=== PATIENT | female | born 1930 ===

== ENCOUNTER 2016-10-31 14:18 | Observation (INO) | payer OTHER ==
[2016-10-31] MEDS ORDERED: Sodium Chloride 0.9% 1,000 ML IV STA (15:06)
[2016-10-31 15:36] LABS: BASO % 0.3 % (0.0-2.0); EOS # 1.4 K/uL (0.0-0.7); EOS % 20.5 % (0.0-4.0); HEMATOCRIT 34.1 % (34.0-47.0); LYMPH # 1.6 K/uL (1.0-4.3); LYMPH % 23.9 % (20.0-40.0); MEAN CELL VOLUME 88.2 fl (81.0-99.0); MEAN CORPUSCULAR HEMOGLOBIN 29.1 pg (27.0-31.0); MONO # 0.4 K/uL (0.0-0.8); MONO % 5.4 % (0.0-10.0); NEUT # 3.3 K/uL (1.8-7.0); NEUT % 49.9 % (50.0-75.0); PLATELET COUNT 206 K/uL (130-400); RED CELL DISTRIBUTION WIDTH 14.8 % (11.5-14.5); WHITE BLOOD COUNT 6.7 K/uL (4.8-10.8)
[2016-10-31 15:43] LABS: VENOUS BLOOD GAS PCO2 47 mmHg (40-60); VENOUS BLOOD PH 7.38 (7.32-7.43)
[2016-10-31 15:43] LABS: ALB/GLOB RATIO 1.3 (1.0-2.1); ALKALINE PHOSPHATASE 111 U/L (38-126); ALT/SGPT 22 U/L (9-52); AST/SGOT 26 U/L (14-36); BILIRUBIN,TOTAL 0.6 mg/dl (0.2-1.3); BLOOD UREA NITROGEN 14 mg/dl (7-17); CALCIUM 9.1 mg/dL (8.4-10.2); CARBON DIOXIDE 21 mmol/L (22-30); CHLORIDE 96 mmol/L (98-107); GFR AFRICAN-AMERICAN > 60; GLUCOSE,RANDOM 108 mg/dL (65-105); SODIUM 128 mmol/l (132-148); TOTAL PROTEIN 7.3 G/DL (6.3-8.2)
[2016-10-31 15:44] LABS: POTASSIUM 4.7 MMOL/L (3.6-5.0)
--- NOTE | 2016-10-31 16:18 | CT ---
PROCEDURE: CT scan of the brain dated 10/31/2016 HISTORY: altered mental COMPARISON: Comparison made with CT scan brain 05/19/2015. TECHNIQUE: Axial computed tomography images were obtained through the head/brain without intravenous contrast. Radiation dose: Total exam DLP = 830.64 mGy-cm. This CT exam was performed using one or more of the following dose reduction techniques: Automated exposure control, adjustment of the mA and/or kV according to patient size, and/or use of iterative reconstruction technique. FINDINGS: HEMORRHAGE: No acute parenchymal, subarachnoid or extra-axial hemorrhage. BRAIN: Moderate diffuse/ confluent chronic white matter ischemic changes are seen extending peripherally into the deep and subcortical white matter both cerebral hemispheres. There appears to be some minimal extension of these changes into the white matter tracts of both basal nuclei. There may also be a few tiny more discrete bilateral basal nuclei lacunar type infarcts. Moderate generalized volume loss. Vascular calcifications both carotid siphons. VENTRICLES: No obstructive hydrocephalus. CALVARIUM: There are no acute calvarial fractures. PARANASAL SINUSES: Small focal areas of polypoid like mucosal thickening and a mucous retention cyst formation inferior margins both maxillary antra. The pacs MASTOID AIR CELLS: Unremarkable as visualized. No inflammatory changes. OTHER FINDINGS: Changes of bilateral cataract surgery. . IMPRESSION: No acute intracranial hemorrhage. Moderate chronic white matter ischemic changes. Moderate generalized volume loss.
[2016-10-31 16:36] LABS: RBC URINE < 1 /hpf (0-3); URINE BACTERIA RARE (<OCC); URINE BILIRUBIN NEGATIVE (NEGATIVE); URINE BLOOD SMALL (NEGATIVE); URINE COLOR AMBER (YELLOW); URINE GLUCOSE (UA) NEG (Normal); URINE KETONE NEGATIVE (NEGATIVE); URINE LEUKOCYTE ESTERASE NEG Leu/uL (Negative); URINE PROTEIN NEGATIVE (NEGATIVE); WBC URINE < 1 /hpf (0-5)
--- NOTE | 2016-10-31 16:46 | ED PDOC ---
HPI: General Adult Time Seen by Provider: 10/31/16 15:03 Chief Complaint (Nursing): Abdominal Pain Chief Complaint (Provider): Weakness History Per: Patient, Family (daughter) History/Exam Limitations: no limitations Onset/Duration Of Symptoms: Days (x2 months), Intermittent Episodes Current Symptoms Are (Timing): Still Present Additional Complaint(s): Thais Barrera is an 86 year old female with previous medical history of hypercholesterolemia, who presents to the emergency department accompanied by her daughter with a complaint of generalized weakness associated fatigue, decreased appetite, chills, dizziness, nausea, non-bloody vomiting or non- bloody diarrhea ongoing on and off for 2 months. Denied fever, chest pain, back pain or abdominal pain. Patient stated she has been treated for a UTI for 2 months at [facility] where she was initially prescribed Cipro then switched to Bactrim. PMD: none provided Past Medical History Reviewed: Historical Data, Nursing Documentation, Vital Signs Vital Signs: Last Vital Signs Temp 98.7 F 10/31/16 16:43 Pulse 69 10/31/16 16:43 Resp 16 10/31/16 16:43 BP 166/56 H 10/31/16 16:43 Pulse Ox 98 10/31/16 18:27 - Medical History PMH: Asthma, Bronchitis, HTN, Pneumonia Denies: HIV, Chronic Kidney Disease - Surgical History Surgical History: Appendectomy, Cholecystectomy - Family History Family History: States: Unknown Family Hx - Social History Current smoker - smoking cessation education provided: No Alcohol: None Drugs: Denies - Home Medications Home Medications: Ambulatory Orders Medication Instructions Recorded Aspirin [Ecotrin] 81 mg PO DAILY 10/31/16 Losartan [Cozaar] 50 mg PO DAILY 10/31/16 Phenazopyridine [Pyridium] 200 mg PO TID 10/31/16 Sulfamethoxazole/Trimethoprim 1 tab PO BID 10/31/16 [Bactrim Ds Tablet] - Allergies Allergies/Adverse Reactions: Allergies Allergy/AdvReac Type Severity Reaction Status Date / Time Penicillins Allergy RASH Verified 10/31/16 17:30 Review of Systems ROS Statement: Except As Marked, All Systems Reviewed And Found Negative Constitutional: Positive for: Chills, Weakness (generalized), Malaise, Other ( decreased appetite). Negative for: Fever Cardiovascular: Negative for: Chest Pain Gastrointestinal: Positive for: Nausea, Vomiting (non-bloody), Diarrhea (non- bloody). Negative for: Abdominal Pain Musculoskeletal: Negative for: Back Pain Neurological: Positive for: Dizziness Physical Exam - Reviewed Nursing Documentation Reviewed: Yes Vital Signs Reviewed: Yes - Physical Exam Appears: Positive for: Well, Non-toxic, No Acute Distress Head Exam: Positive for: ATRAUMATIC, NORMAL INSPECTION, NORMOCEPHALIC Neck: Positive for: Normal, Painless ROM, Supple Respiratory: Positive for: Normal Breath Sounds. Negative for: Crackles, Rales , Rhonchi, Wheezing, Respiratory Distress Gastrointestinal/Abdominal: Positive for: Bowel Sounds, Soft, Tenderness ( bilateral lower quadrants). Negative for: Normal Exam Extremity: Positive for: Normal ROM. Negative for: Tenderness, Pedal Edema Neurologic/Psych: Positive for: Alert, pot filler II-XII, Oriented (x3; responsive to questions) - Laboratory Results Result Diagrams: 10/31/16 15:14 10/31/16 15:14 - ECG O2 Sat by Pulse Oximetry: 98 (RA) Pulse Ox Interpretation: Normal Medical Decision Making Medical Decision Making: Initial Impression: UTI; hypernatremia; dehydration Initial Plan: * Regular diet * Labs * CXR * NS 1,000ml IV per 250mls/hr * Blood culture * Urine culture * Admit to hospital Time: 1545 --CT head FINDINGS: HEMORRHAGE: No acute parenchymal, subarachnoid or extra-axial hemorrhage. BRAIN: Moderate diffuse/ confluent chronic white matter ischemic changes are seen extending peripherally into the deep and subcortical white matter both cerebral hemispheres. There appears to be some minimal extension of these changes into the white matter tracts of both basal nuclei. There may also be a few tiny more discrete bilateral basal nuclei lacunar type infarcts. Moderate generalized volume loss. Vascular calcifications both carotid siphons. VENTRICLES: No obstructive hydrocephalus. CALVARIUM: There are no acute calvarial fractures. PARANASAL SINUSES: Small focal areas of polypoid like mucosal thickening and a mucous retention cyst formation inferior margins both maxillary antra. The pacs MASTOID AIR CELLS: Unremarkable as visualized. No inflammatory changes. OTHER FINDINGS: Changes of bilateral cataract surgery. . IMPRESSION: No acute intracranial hemorrhage. Moderate chronic white matter ischemic changes. Moderate generalized volume loss. Time: 1716 --CXR FINDINGS: LUNGS: Minor bibasilar atelectasis and or scarring. PLEURA: No significant pleural effusion identified, no pneumothorax apparent. CARDIOVASCULAR: Heart appears mildly enlarged OSSEOUS STRUCTURES: No significant abnormalities. VISUALIZED UPPER ABDOMEN: Normal. OTHER FINDINGS: None. IMPRESSION: Minor bibasilar atelectasis and/or scarring. Cardiomegaly. Scribe Attestation: Documented by Mariah Ivan, acting as a scribe for Dora Mann MD. Provider Scribe Attestation: All medical record entries made by the Scribe were at my direction and personally dictated by me. I have reviewed the chart and agree that the record accurately reflects my personal performance of the history, physical exam, medical decision making, and the department course for this patient. I have also personally directed, reviewed, and agree with the discharge instructions and disposition. Disposition - Clinical Impression Clinical Impression: Hyponatremia - Patient ED Disposition Is Patient to be Admitted: Yes Doctor Will See Patient In The: Hospital - Disposition Disposition: Transfer of Care Disposition Time: 16:35 Condition: GUARDED - Pt Status Changed To: Hospital Disposition Of: Observation - POA Present On Arrival: None
[2016-10-31] MEDS ORDERED: cefTRIAXone 1,000 MG in PED IV SYRINGE 1 SYR IVPB SCH (17:00)
--- NOTE | 2016-10-31 17:05 | CP.PCM.HP ---
History of Present Illness - History of Present Illness History of Present Illness: CC: UTI HPI: 86 year old female PMH HTN, CAD? on ASA, hx of UTI, presents with her daughter after a one week history of UTI, discomfort, persistent, nonradiating, not ameliorated or worsened by anything. Patient had another UTI appx one month ago, and was prescribed Cipro which resolved her UTI for two weeks. One week ago , patient began having symptoms again and was prescribed Bactrim. Patient took this Bactrim and did not feel well and came to the ER. Patient was weak, fatigued, and dizzy. She was also found to by hyponatremic at 128. Pt given 1L of fluids for electrolytes, and felt improved after receiving fluids in ER. Recheck electrolytes in AM, and give IV abx for UTI. ROS: per HPI, 12 systems reviewed and negative PMD: [facility] PMH: HTN, CAD? on ASA, hx of UTI PSH: hysterectomy, appendectomy FH: denies SH: denies tobacco, ETOH, IVDU Meds: as below Allergies: PCN Vitals: reviewed and currently stable Temp Pulse Resp BP Pulse Ox 98.7 F 69 16 166/56 H 98 10/31/16 16:43 10/31/16 16:43 10/31/16 16:43 10/31/16 16:43 10/31/16 16:57 Exam: GEN: WDWN, alert, cooperative HEENT: NCAT, PERRL, EOMI NECK: supple, no JVD, no lymphadenopathy CARDIAC: +S1S2 RRR LUNG: CTAB No WRR ABD: SOFT NT ND BSX4 NO MASSES NO HSM EXT: +pedal pulses, equal strength NEURO: AAOx3 SKIN warm, dry PSYCH normal mood, normal affect Labs: 10/31/16 15:14 10/31/16 15:14 Rads: Active Medications: Allergies Penicillins Allergy (Verified 10/31/16 17:30) RASH Height & Weight Height 4 ft 9 in Weight 115 lb Start Date/Time Active Medications 10/31/16 15:06 Sodium Chloride 0.9% 1,000 ml IV 250 mls/hr 10/31/16 21:00 Metoprolol Tartrate [Lopressor] 12.5 mg PO Q12 11/01/16 09:00 Aspirin [Ecotrin] 81 mg PO DAILY Enoxaparin [Lovenox] 40 mg SC DAILY Losartan [Cozaar] 50 mg PO DAILY cefTRIAXone [Rocephin] 1 gm Sodium Chloride 0.9% 100 ml IVPB DAILY Assessment and Plan: 86 year old female PMH HTN, CAD? on ASA, hx of UTI, presents with her daughter after a one week history of UTI, discomfort, persistent, nonradiating, not ameliorated or worsened by anything. Patient had another UTI appx one month ago , and was prescribed Cipro which resolved her UTI for two weeks. One week ago, patient began having symptoms again and was prescribed Bactrim. Patient took this Bactrim and did not feel well and came to the ER. Patient was weak, fatigued, and dizzy. She was also found to by hyponatremic at 128. Pt given 1L of fluids for electrolytes, and felt improved after receiving fluids in ER. Recheck electrolytes in AM, and give IV abx for UTI. Hyponatremia, symptomatic pt weak, confused and dizzy on admission given NS 1L will recheck symptoms improved after fluids UTI afebrile asymptomatic did not agree with Bactrim started Ceftriaxone cultures pending HTN continue cozaar 50 mg po daily start lopressor 12.5 mg po q12 for better control CAD ASA 81 MG PO DAILY continue VTEppx lovenox Present on Admission - Present on Admission Any Indicators Present on Admission: No Past Patient History - Infectious Disease Hx of Infectious Diseases: None - Past Medical History & Family History Past Medical History?: Yes - Past Social History Alcohol: None Drugs: Denies - CARDIAC Hx Hypertension: Yes - PULMONARY Hx Asthma: Yes Hx Bronchitis: Yes Hx Pneumonia: Yes - NEUROLOGICAL Hx Neurological Disorder: No - HEENT Hx HEENT Problems: Yes ([place]) Hx Cataracts: Yes - RENAL Hx Chronic Kidney Disease: No - ENDOCRINE/METABOLIC Hx Endocrine Disorders: No - HEMATOLOGICAL/ONCOLOGICAL Hx Human Immunodeficiency Virus (HIV): No - INTEGUMENTARY Hx Dermatological Problems: No - MUSCULOSKELETAL/RHEUMATOLOGICAL Hx Musculoskeletal Disorders: Yes Hx Falls: Yes - GASTROINTESTINAL Hx Gastrointestinal Disorders: No - GENITOURINARY/GYNECOLOGICAL Hx Genitourinary Disorders: No - PSYCHIATRIC Hx Psychophysiologic Disorder: No Hx Substance Use: No - SURGICAL HISTORY Hx Appendectomy: Yes Hx Cholecystectomy: Yes - ANESTHESIA Hx Anesthesia: Yes Hx Anesthesia Reactions: No Hx Malignant Hyperthermia: No Meds Allergies/Adverse Reactions: Allergies Allergy/AdvReac Type Severity Reaction Status Date / Time Penicillins Allergy RASH Verified 10/31/16 17:30 Results - Vital Signs Recent Vital Signs: Last Vital Signs Temp 98.7 F 10/31/16 16:43 Pulse 69 10/31/16 16:43 Resp 16 10/31/16 16:43 BP 166/56 H 10/31/16 16:43 Pulse Ox 98 10/31/16 16:57 - Labs Result Diagrams: 10/31/16 15:14 10/31/16 15:14 Labs: Laboratory Results - last 24 hr 10/31/16 10/31/16 10/31/16 15:14 15:14 15:35 WBC 6.7 RBC 3.86 Hgb 11.2 L Hct 34.1 MCV 88.2 MCH 29.1 MCHC 33.0 RDW 14.8 H Plt Count 206 MPV 9.0 Neut % (Auto) 49.9 L Lymph % (Auto) 23.9 [place] % (Auto) 5.4 Eos % (Auto) 20.5 H Baso % (Auto) 0.3 Neut # 3.3 Lymph # 1.6 [place] # 0.4 Eos # 1.4 H Baso # 0.0 pO2 29 L VBG pH 7.38 VBG pCO2 47 VBG HCO3 25.3 VBG Total CO2 29.2 H VBG O2 Sat (Calc) 62.8 VBG Base Excess 2.0 VBG Potassium 5.9 H Glucose 114 H Lactate 1.4 FiO2 21.0 Sodium 128 L 127.0 L Potassium 4.7 Chloride 96 L 95.0 L Carbon Dioxide 21 L Anion Gap 16 BUN 14 Creatinine 0.7 Est GFR ( Amer) > 60 Est GFR (Non-Af Amer) > 60 Random Glucose 108 H Calcium 9.1 Total Bilirubin 0.6 AST 26 ALT 22 Alkaline Phosphatase 111 Total Protein 7.3 Albumin 4.2 Globulin 3.1 Albumin/Globulin Ratio 1.3 Venous Blood Potassium 5.9 H Urine Color Urine Clarity Urine pH Ur Specific [place] Urine Protein Urine Glucose (UA) Urine Ketones Urine Blood Urine Nitrate Urine Bilirubin Urine Urobilinogen Ur Leukocyte Esterase Urine RBC (Auto) Urine Microscopic WBC Ur Squamous Epith Cells Urine Bacteria 10/31/16 16:15 WBC RBC Hgb Hct MCV MCH MCHC RDW Plt Count MPV Neut % (Auto) Lymph % (Auto) [place] % (Auto) Eos % (Auto) Baso % (Auto) Neut # Lymph # [place] # Eos # Baso # pO2 VBG pH VBG pCO2 VBG HCO3 VBG Total CO2 VBG O2 Sat (Calc) VBG Base Excess VBG Potassium Glucose Lactate FiO2 Sodium Potassium Chloride Carbon Dioxide Anion Gap BUN Creatinine Est GFR ( Amer) Est GFR (Non-Af Amer) Random Glucose Calcium Total Bilirubin AST ALT Alkaline Phosphatase Total Protein Albumin Globulin Albumin/Globulin Ratio Venous Blood Potassium Urine Color Madie Urine Clarity Clear Urine pH 7.0 Ur Specific [place] < 1.005 Urine Protein Negative Urine Glucose (UA) Neg Urine Ketones Negative Urine Blood Small Urine Nitrate Positive H Urine Bilirubin Negative Urine Urobilinogen 2.0 H Ur Leukocyte Esterase Neg Urine RBC (Auto) < 1 Urine Microscopic WBC < 1 Ur Squamous Epith Cells < 1 Urine Bacteria Rare
[2016-10-31 17:12] LABS: EOSINOPHIL 16 % (0-7); NEUTROPHIL 49 % (42-75); TOTAL CELLS COUNTED 100
--- NOTE | 2016-10-31 17:18 | RAD ---
HISTORY: Altered mental status COMPARISON: Comparison made with prior study 04/02/2016 FINDINGS: LUNGS: Minor bibasilar atelectasis and or scarring. PLEURA: No significant pleural effusion identified, no pneumothorax apparent. CARDIOVASCULAR: Heart appears mildly enlarged OSSEOUS STRUCTURES: No significant abnormalities. VISUALIZED UPPER ABDOMEN: Normal. OTHER FINDINGS: None. IMPRESSION: Minor bibasilar atelectasis and/or scarring. Cardiomegaly.
[2016-10-31] MEDS ORDERED: Sodium Chloride 0.9% 1,000 ML IV SCH (23:30)
[2016-11-01 06:28] LABS: BLOOD UREA NITROGEN 10 mg/dl (7-17); CALCIUM 9.1 mg/dL (8.4-10.2); CARBON DIOXIDE 24 mmol/L (22-30); CHLORIDE 108 mmol/L (98-107); GFR AFRICAN-AMERICAN > 60; GLUCOSE,RANDOM 85 mg/dL (65-105); POTASSIUM 4.2 MMOL/L (3.6-5.0); SODIUM 139 mmol/l (132-148)
[2016-11-01 08:20] VITALS: RESP 20; TEMP 97.6; O2SAT 98
[2016-11-01] MEDS ORDERED: Enoxaparin 40 mg Syringe SC SCH (09:00)
[2016-11-01 11:14] VITALS: PULSE 55
--- NOTE | 2016-11-01 13:16 | CP.PCM.DIS ---
Provider - Provider Date of Admission: 10/31/16 16:35 Attending physician: Katie Fountain DO Time Spent in preparation of Discharge (in minutes): 20 Hospital Course - Lab Results Lab Results: Most Recent Lab Values WBC 6.7 K/uL (4.8-10.8) 10/31/16 15:14 RBC 3.86 Mil/uL (3.80-5.20) 10/31/16 15:14 Hgb 11.2 g/dL (12.0-16.0) L 10/31/16 15:14 Hct 34.1 % (34.0-47.0) 10/31/16 15:14 MCV 88.2 fl (81.0-99.0) 10/31/16 15:14 MCH 29.1 pg (27.0-31.0) 10/31/16 15:14 MCHC 33.0 g/dL (33.0-37.0) 10/31/16 15:14 RDW 14.8 % (11.5-14.5) H 10/31/16 15:14 Plt Count 206 K/uL (130-400) 10/31/16 15:14 MPV 9.0 fl (7.2-11.7) 10/31/16 15:14 Neut % (Auto) 49.9 % (50.0-75.0) L 10/31/16 15:14 Lymph % (Auto) 23.9 % (20.0-40.0) 10/31/16 15:14 [place] % (Auto) 5.4 % (0.0-10.0) 10/31/16 15:14 Eos % (Auto) 20.5 % (0.0-4.0) H 10/31/16 15:14 Baso % (Auto) 0.3 % (0.0-2.0) 10/31/16 15:14 Neut # 3.3 K/uL (1.8-7.0) 10/31/16 15:14 Lymph # 1.6 K/uL (1.0-4.3) 10/31/16 15:14 [place] # 0.4 K/uL (0.0-0.8) 10/31/16 15:14 Eos # 1.4 K/uL (0.0-0.7) H 10/31/16 15:14 Baso # 0.0 K/uL (0.0-0.2) 10/31/16 15:14 Neutrophils % (Manual) 49 % (42-75) 10/31/16 15:14 Band Neutrophils % 2 % (0-2) 10/31/16 15:14 Lymphocytes % (Manual) 26 % (20-50) 10/31/16 15:14 Monocytes % (Manual) 7 % (0-10) 10/31/16 15:14 Eosinophils % (Manual) 16 % (0-7) H 10/31/16 15:14 Platelet Estimate Normal (NORMAL) 10/31/16 15:14 Hypochromasia (manual) Slight 10/31/16 15:14 Anisocytosis (manual) Slight 10/31/16 15:14 pO2 29 mm/Hg (30-55) L 10/31/16 15:35 VBG pH 7.38 (7.32-7.43) 10/31/16 15:35 VBG pCO2 47 mmHg (40-60) 10/31/16 15:35 VBG HCO3 25.3 mmol/L 10/31/16 15:35 VBG Total CO2 29.2 mmol/L (22-28) H 10/31/16 15:35 VBG O2 Sat (Calc) 62.8 % (40-65) 10/31/16 15:35 VBG Base Excess 2.0 mmol/L (0.0-2.0) 10/31/16 15:35 VBG Potassium 5.9 mmol/L (3.6-5.2) H 10/31/16 15:35 Sodium 127.0 mmol/L (132-148) L 10/31/16 15:35 Chloride 95.0 mmol/L (98-107) L 10/31/16 15:35 Glucose 114 mg/dL (65-105) H 10/31/16 15:35 Lactate 1.4 mmol/L (0.7-2.1) 10/31/16 15:35 FiO2 21.0 % 10/31/16 15:35 Sodium 139 mmol/l (132-148) 11/01/16 06:05 Potassium 4.2 MMOL/L (3.6-5.0) 11/01/16 06:05 Chloride 108 mmol/L (98-107) H 11/01/16 06:05 Carbon Dioxide 24 mmol/L (22-30) 11/01/16 06:05 Anion Gap 11 (10-20) 11/01/16 06:05 BUN 10 mg/dl (7-17) 11/01/16 06:05 Creatinine 0.9 mg/dL (0.7-1.2) 11/01/16 06:05 Est GFR ( Amer) > 60 11/01/16 06:05 Est GFR (Non-Af Amer) 59 11/01/16 06:05 Random Glucose 85 mg/dL (65-105) 11/01/16 06:05 Calcium 9.1 mg/dL (8.4-10.2) 11/01/16 06:05 Total Bilirubin 0.6 mg/dl (0.2-1.3) 10/31/16 15:14 AST 26 U/L (14-36) 10/31/16 15:14 ALT 22 U/L (9-52) 10/31/16 15:14 Alkaline Phosphatase 111 U/L (38-126) 10/31/16 15:14 Total Protein 7.3 G/DL (6.3-8.2) 10/31/16 15:14 Albumin 4.2 g/dL (3.5-5.0) 10/31/16 15:14 Globulin 3.1 gm/dL (2.2-3.9) 10/31/16 15:14 Albumin/Globulin Ratio 1.3 (1.0-2.1) 10/31/16 15:14 Venous Blood Potassium 5.9 mmol/L (3.6-5.2) H 10/31/16 15:35 Urine Color Madie (YELLOW) 10/31/16 16:15 Urine Clarity Clear (Clear) 10/31/16 16:15 Urine pH 7.0 (5.0-8.0) 10/31/16 16:15 Ur Specific [place] < 1.005 (1.003-1.030) 10/31/16 16:15 Urine Protein Negative mg/dL (NEGATIVE) 10/31/16 16:15 Urine Glucose (UA) Neg mg/dL (Normal) 10/31/16 16:15 Urine Ketones Negative mg/dL (NEGATIVE) 10/31/16 16:15 Urine Blood Small (NEGATIVE) 10/31/16 16:15 Urine Nitrate Positive (NEGATIVE) H 10/31/16 16:15 Urine Bilirubin Negative (NEGATIVE) 10/31/16 16:15 Urine Urobilinogen 2.0 mg/dL (0.2-1.0) H 10/31/16 16:15 Ur Leukocyte Esterase Neg Chi/uL (Negative) 10/31/16 16:15 Urine RBC (Auto) < 1 /hpf (0-3) 10/31/16 16:15 Urine Microscopic WBC < 1 /hpf (0-5) 10/31/16 16:15 Ur Squamous Epith Cells < 1 /hpf (0-5) 10/31/16 16:15 Urine Bacteria Rare (<OCC) 10/31/16 16:15 - Hospital Course Hospital Course: 86 year old female with PMH HTN, CAD? on ASA, hx of UTI, presented with her daughter after a one week history of UTI, discomfort, persistent, nonradiating, not ameliorated or worsened by anything. Patient had another UTI appx one month ago, and was prescribed Cipro which resolved her UTI for two weeks. One week ago , patient began having symptoms again and was prescribed Bactrim. Patient took this Bactrim and did not feel well and came to the ER. Patient was weak, fatigued, and dizzy. She was also found to by hyponatremic at 128. Pt given 1L of fluids for electrolytes, and felt improved after receiving fluids in ER. Her UA showed nitrate positive and patient was started on Rocephin IV . Patient also found to be hypertensive with BP 180 /86 . She was started on Norvasc 5 mg po daily . Discontinued Metoprolol tartrate due to brdaycardia Resumed her losartan 50 mg PO daily. Patient clinically improved . Her bloodw work up showed normal WBC count, afebrile, normalized Na and electrolytes Will d/c patinet home with family advise to follow up with PMD Will continue CIpro PO for 5 more days for UTI 1.Dehydration and hyponatremia improved with IVF Hyponatremia, symptomatic pt weak, confused and dizzy on admission symptoms improved after fluids 2.UTI afebrile asymptomatic did not agree with Bactrim started Ceftriaxone will d/c on Cipro Po for 5 more days 3. Uncontrolled HTN BP elevated 180/86 Start Norvasc 5 mg po daily Continue Losartan 50 mg po daily 4.CAD ? ASA 81 MG PO DAILY continue VTEppx lovenox Discharge Exam - Head Exam Head Exam: ATRAUMATIC, NORMAL INSPECTION, NORMOCEPHALIC - Eye Exam Eye Exam: EOMI, Normal appearance, PERRL Pupil Exam: NORMAL ACCOMODATION - ENT Exam ENT Exam: Mucous Membranes Moist, Normal Exam - Neck Exam Neck exam: Full Rom, Normal Inspection - Respiratory Exam Respiratory Exam: Clear to PA & Lateral, NORMAL BREATHING PATTERN. absent: Rales, Rhonchi, Wheezes - Cardiovascular Exam Cardiovascular Exam: REGULAR RHYTHM, RRR, +S1, +S2. absent: JVD - GI/Abdominal Exam GI & Abdominal Exam: Normal Bowel Sounds, Soft. absent: Distended, Guarding, Rebound, Tenderness - Rectal Exam Rectal Exam: Deferred - Extremities Exam Extremities exam: normal capillary refill, normal inspection, pedal pulses present - Back Exam Back exam: NORMAL INSPECTION - Neurological Exam Neurological exam: Alert, CN II-XII Intact, Oriented x3, Reflexes Normal - Psychiatric Exam Psychiatric exam: Normal Affect, Normal Mood - Skin Skin Exam: Dry, Intact, Normal Color, Warm Discharge Plan - Follow Up Plan Condition: STABLE Disposition: HOME/ ROUTINE Patient education suggested?: Yes Instructions: Urinary Tract Infection in Women (DC), Hyponatremia (DC) [facility]]
[2016-11-01 13:51] VITALS: BP 158/68
== END 2016-11-01 16:02 | disposition home or self-care (01) ==
LOC: H.ER 14:18 → H.ERHOLD 16:35 → H.MEDSURG1 21:29
PROVIDERS: ADMIT Student in an Organized Health Care Education/Training Program; ATTEND Student in an Organized Health Care Education/Training Program
DX: E87.1 Hypo-osmolality and hyponatremia (principal); E86.0 Dehydration; Z88.0 Allergy status to penicillin; J45.909 Unspecified asthma, uncomplicated; N39.0 Urinary tract infection, site not specified; E78.00 Pure hypercholesterolemia, unspecified; I10 Essential (primary) hypertension
CPT/HCPCS: 36415; 70450; 71010; 80048; 80053; 81003; 82803; 85025; 87040; 87086; 99284; G0378; J0696; J1650; J7040

== ENCOUNTER 2016-11-08 00:29 | Emergency (ER) | payer OTHER ==
[2016-11-08 00:43] VITALS: O2SAT 98
[2016-11-08 02:19] LABS: BASO % 0.6 % (0.0-2.0); EOS # 1.7 K/uL (0.0-0.7); EOS % 24.8 % (0.0-4.0); HEMATOCRIT 33.4 % (34.0-47.0); LYMPH # 1.7 K/uL (1.0-4.3); LYMPH % 24.8 % (20.0-40.0); MEAN CELL VOLUME 88.3 fl (81.0-99.0); MEAN CORPUSCULAR HEMOGLOBIN 29.2 pg (27.0-31.0); MEAN CORPUSCULAR HGB CONC 33.1 g/dL (33.0-37.0); MEAN PLATELET VOLUME 8.1 fl (7.2-11.7); MONO # 0.4 K/uL (0.0-0.8); MONO % 5.5 % (0.0-10.0); NEUT % 44.3 % (50.0-75.0); PLATELET COUNT 203 K/uL (130-400); RED CELL DISTRIBUTION WIDTH 15.5 % (11.5-14.5); WHITE BLOOD COUNT 6.7 K/uL (4.8-10.8)
[2016-11-08 02:50] LABS: BLOOD UREA NITROGEN 17 mg/dl (7-17); CALCIUM 9.2 mg/dL (8.4-10.2); CARBON DIOXIDE 25 mmol/L (22-30); CHLORIDE 104 mmol/L (98-107); GFR AFRICAN-AMERICAN > 60; GLUCOSE,RANDOM 97 mg/dL (65-105); POTASSIUM 4.2 MMOL/L (3.6-5.0); SODIUM 137 mmol/l (132-148)
--- NOTE | 2016-11-08 02:55 | ED PDOC ---
HPI: Trauma/Fall - HPI Time Seen by Provider: 11/08/16 00:51 Chief Complaint (Nursing): Back Pain Chief Complaint (Provider): Headache, neck pain, back pain History Per: Patient History/Exam Limitations: no limitations Onset/Duration Of Symptoms: Mins Injury Occurred (Timing): Just Before Arrival Location Of Injury: Right: Shoulder, Posterior: Back, Head, Neck Associated Symptoms: denies: LOC Additional Complaint(s): The patient is a 86yo female, pmhx of hypertension, surgical history of appendectomy, cholecystectomy, presents to the ED for evaluation s/p falling out of her bed prior to arrival. Pt reports she rolled over in her bed and fell , hitting the back of her head. She denies any loss of consciousness but reports a headache, neck pain, upper back pain, right sided shoulder pain. She denies any chest pain, syncope,e or extremity pain. Pt offers no additional medical complaints. Past Medical History Reviewed: Historical Data, Nursing Documentation, Vital Signs Vital Signs: Last Vital Signs Temp 99.6 F 11/08/16 00:40 Pulse 74 11/08/16 00:40 Resp 18 11/08/16 00:40 BP 160/67 H 11/08/16 00:40 Pulse Ox 98 11/08/16 04:13 - Medical History PMH: Arthritis, Asthma, Bronchitis, HTN, Hypercholesterolemia, Pneumonia Denies: HIV, Chronic Kidney Disease - Surgical History Surgical History: Appendectomy, Cholecystectomy - Family History Family History: States: Unknown Family Hx - Home Medications Home Medications: Ambulatory Orders Medication Instructions Recorded Aspirin [Ecotrin] 81 mg PO DAILY 10/31/16 Losartan [Cozaar] 50 mg PO DAILY 10/31/16 Phenazopyridine [Pyridium] 200 mg PO TID 10/31/16 Levofloxacin [Levaquin] 500 mg PO DAILY #5 tablet 11/01/16 amLODIPine [Norvasc] 5 mg PO DAILY #30 tab 11/01/16 Nitrofurantoin Macrocrystals 100 mg PO BID #10 cap 11/08/16 [Macrobid] - Allergies Allergies/Adverse Reactions: Allergies Allergy/AdvReac Type Severity Reaction Status Date / Time Penicillins Allergy RASH Verified 10/31/16 17:30 Review of Systems ROS Statement: Except As Marked, All Systems Reviewed And Found Negative Cardiovascular: Negative for: Chest Pain Musculoskeletal: Positive for: Neck Pain, Shoulder Pain, Back Pain. Negative for: Leg Pain Neurological: Positive for: Headache. Negative for: Other (syncope) Physical Exam - Reviewed Nursing Documentation Reviewed: Yes Vital Signs Reviewed: Yes - Physical Exam Appears: Positive for: Non-toxic, No Acute Distress Head Exam: Positive for: ATRAUMATIC, NORMAL INSPECTION, NORMOCEPHALIC Skin: Positive for: Normal Color Eye Exam: Positive for: Normal appearance, EOMI, PERRL Neck: Negative for: Normal (midline tenderness, c-collar in place) Cardiovascular/Chest: Positive for: Regular Rate, Rhythm Respiratory: Positive for: Normal Breath Sounds. Negative for: Respiratory Distress Gastrointestinal/Abdominal: Positive for: Normal Exam, Soft. Negative for: Tenderness Back: Positive for: Normal Inspection Extremity: Positive for: Normal ROM. Negative for: Pedal Edema, Deformity, Swelling Neurologic/Psych: Positive for: Alert, Oriented. Negative for: Motor/Sensory Deficits - Laboratory Results Result Diagrams: 11/08/16 01:58 11/08/16 01:58 - ECG O2 Sat by Pulse Oximetry: 98 (RA) Pulse Ox Interpretation: Normal Medical Decision Making Medical Decision Making: Time: 109 Impression: Mechanical fall, head injury, neck pain Differential: Intracranial bleed, c-spine fracture, r/o rib fracture, shoulder fracture and pelvis fracture Plan: -- CT Head -- CT C-Spine -- Labs -- XR Right Shoulder -- XR Pelvis -- Morphine 2mg IVP --Reassess Time: 231 CT Head FINDINGS: There is moderate brain parenchymal atrophy. There is chronic microvascular ischemic changes/gliosis in the brain parenchyma. There is no midline shift or mass effect. There is no evidence of an acute ischemic stroke. There is no intracranial hemorrhage. There is calcification of the arteries. The skull shows no evidence of injury or other acute pathologic processes. There is slight mucosal thickening in the paranasal sinuses. IMPRESSION: There is no acute intracranial abnormality. Time: 236 CT C-Spine FINDINGS: There is diffuse osteopenia. There is mild to moderate degenerative disease in the spine. There is no fracture. There is no dislocation. There are small bone islands in the left C2 lamina and the left T1 transverse process. There is an 8 mm heterogeneous hypodensity in the right lobe of the thyroid gland. IMPRESSION: 1. No acute cervical spine bony abnormality/injury. 2. There is an 8 mm heterogeneous hypodensity in the right lobe of the thyroid gland. Time: 0408 XR's reviewed and indicate no fractures or dislocations. Pt stable for discharge home. Scribe Attestation: Documented by Belinda Delong acting as a scribe for Iva Navarrete MD Provider Scribe Attestation: All medical record entries made by the Scribe were at my direction and personally dictated by me. I have reviewed the chart and agree that the record accurately reflects my personal performance of the history, physical exam, medical decision making, and the department course for this patient. I have also personally directed, reviewed, and agree with the discharge instructions and disposition. Disposition - Clinical Impression Clinical Impression: UTI (urinary tract infection), Head injury, Thyroid nodule, Back pain, Neck pain - Patient ED Disposition Is Patient to be Admitted: No Doctor Will See Patient In The: Office Counseled Patient/Family Regarding: Studies Performed, Diagnosis, Need For Followup - Disposition Referrals: [facility] [Outside] Disposition: Routine/Home Disposition Time: 04:08 Condition: GOOD Additional Instructions: Take motrin for pain. Follow up with your PCP in 2-3 days. Prescriptions: Nitrofurantoin Macrocrystals [Macrobid] 100 mg PO BID #10 cap Instructions: Urinary Tract Infection in Women (DC), Fall Prevention for Older Adults (ED), Head Injury (ED) Print Language: IRISH
[2016-11-08 04:32] VITALS: BP 135/81; PULSE 77; RESP 16; TEMP 98.7
[2016-11-08 04:54] LABS: EOSINOPHIL 24 % (0-7); NEUTROPHIL 49 % (42-75); TOTAL CELLS COUNTED 100
--- NOTE | 2016-11-08 07:59 | CT ---
PROCEDURE: CT HEAD WITHOUT CONTRAST. HISTORY: head injury COMPARISON: Head CT without contrast 10/31/2016. TECHNIQUE: Axial computed tomography images were obtained through the head/brain without intravenous contrast. Radiation dose: Total exam DLP = 913 mGy-cm. This CT exam was performed using one or more of the following dose reduction techniques: Automated exposure control, adjustment of the mA and/or kV according to patient size, and/or use of iterative reconstruction technique. FINDINGS: HEMORRHAGE: No intracranial hemorrhage. BRAIN: Diffuse cerebral atrophy and chronic microangiopathy are reiterated throughout the cerebrum with no cortical edema identified. Corticomedullary differentiation is well preserved with midline brain anatomy appearing grossly unremarkable there is no suspicious extra-axial fluid collection appreciated throughout. No mass effect identified. The sulci and cisterns appear normal. VENTRICLES: Unremarkable. No hydrocephalus. CALVARIUM: Unremarkable. PARANASAL SINUSES: Unremarkable as visualized. No significant inflammatory changes. MASTOID AIR CELLS: Unremarkable as visualized. No inflammatory changes. OTHER FINDINGS: None. IMPRESSION: Stable limited age-related degenerative changes are identified. No acute intracranial findings by standard CT criteria. Follow-up CT or MRI are available if clinically warranted. Concur with [facility] preliminary report submitted 11/08/2026.
--- NOTE | 2016-11-08 08:10 | CT ---
PROCEDURE: CT Cervical Spine without contrast HISTORY: <neck pain> COMPARISON: None available. TECHNIQUE: Axial computed tomography images were obtained of the cervical spine without the use of intravenous contrast. Coronal and sagittal reformatted images were created and reviewed. Radiation dose: Total exam DLP = 257 mGy-cm. This CT exam was performed using one or more of the following dose reduction techniques: Automated exposure control, adjustment of the mA and/or kV according to patient size, and/or use of iterative reconstruction technique. FINDINGS: VERTEBRAE: Diffuse osteopenia suggests an element of osteoporosis at least. No definite fracture or spondylolisthesis is appreciable. DISCS/SPINAL CANAL/NEURAL FORAMINA: No significant central canal or neural foraminal stenosis. Mild bilateral degenerative neural foraminal stenoses identified at C5-6 and somewhat at C6-7 as well with minimal disc osteophyte complex is noted at both these levels. C7-T1 is widely patent throughout. PARASPINAL SOFT TISSUES: Unremarkable. OTHER FINDINGS: None. IMPRESSION: 1. No acute fracture or spondylolisthesis appreciated. Reason is reduced osteoporosis. 2. Multilevel degenerate spondylosis with limited bilateral neural foraminal stenoses identified at C5-6 and C6-7 without significant central canal stenosis. No gross disc herniation. MRI is available for follow-up if clinically warranted.
--- NOTE | 2016-11-08 10:02 | RAD ---
HISTORY: chest pain COMPARISON: Frontal chest 10/31/2016. FINDINGS: LUNGS: No acute infiltrate appreciated bilaterally. Left hemidiaphragm appears elevated once again. PLEURA: No significant pleural effusion identified, no pneumothorax apparent. CARDIOVASCULAR: Normal. OSSEOUS STRUCTURES: No significant abnormalities. VISUALIZED UPPER ABDOMEN: Normal. OTHER FINDINGS: None. IMPRESSION: Stable left hemidiaphragm elevation. No acute infiltrate bilaterally. No interval definite cardiac disease appreciable.
--- NOTE | 2016-11-08 11:28 | RAD ---
PROCEDURE: Radiographs of the Right Shoulder HISTORY: shoulder pain COMPARISON: Right shoulder radiographs 03/22/2016. FINDINGS: BONES: Diffuse osteopenia suggests osteoporosis. No displaced fracture is appreciable. JOINTS: Degenerative glenohumeral joint changes are mild but stable. The acromioclavicular joint appears unremarkable. SOFT TISSUES: Heterotopic calcification at the region of the rotator cuff may indicate calcific tendinosis. MRI can be utilized for further characterization. OTHER FINDINGS: None. IMPRESSION: Stable degenerate changes at the glenohumeral joint are identified with calcific tendinosis pattern favored in soft tissue locally. No displaced fracture. No dislocation. Diffuse osteopenia suggests osteoporosis.
--- NOTE | 2016-11-08 11:32 | RAD ---
PROCEDURE: Radiographs of the pelvis. HISTORY: pelvic pain COMPARISON: None. FINDINGS: BONES: No fracture or dislocation is appreciated bilaterally. No suspicious lytic or blastic changes focally appreciable. Pelvic Bones: Diffuse osteopenia suggests osteoporosis. Hips: Diffuse osteopenia suggests osteoporosis. JOINTS: Sacroiliac Joints: Moderate degenerative changes seen the bilateral sacroiliac and hip joints symmetrically. Pubic Symphysis: Unremarkable. OTHER FINDINGS: None. IMPRESSION: Diffuse osteopenia suggests osteoporosis. No acute displaced fracture. Degenerative changes in the bilateral sacroiliac and hip joints.
--- NOTE | 2016-11-09 11:33 | CARD ---
APPROVED REPORT EKG Measurement Heart [id number] <Conclusion> Normal sinus rhythm Normal ECG
== END 2016-11-08 04:20 | disposition home or self-care (01) ==
LOC: H.ER 00:29
DX: N39.0 Urinary tract infection, site not specified (principal); S09.90XA Unspecified injury of head, initial encounter; W06.XXXA Fall from bed, initial encounter; Y92.003 Bedroom of unspecified non-institutional (private) residence as the place of occurrence of the external cause; E04.1 Nontoxic single thyroid nodule; I10 Essential (primary) hypertension; Z79.82 Long term (current) use of aspirin; Z88.0 Allergy status to penicillin
CPT/HCPCS: 70450; 71010; 72125; 72170; 73030; 80048; 85025; 93005; 96374; 99282; J2270

== ENCOUNTER 2017-03-07 10:05 | Emergency (ER) | payer OTHER ==
[2017-03-07 10:08] VITALS: BMI 22.0
[2017-03-07 10:19] VITALS: RESP 18; TEMP 98.6; O2SAT 96
--- NOTE | 2017-03-07 11:13 | ED PDOC ---
HPI: Eye Injury/Pain Time Seen by Provider: 03/07/17 10:30 Chief Complaint (Nursing): Eye Problem Chief Complaint (Provider): Eye Problem History Per: Patient History/Exam Limitations: no limitations Current Symptoms Are (Timing): Still Present Additional Complaint(s): 86 year old female presents to the emergency department accompanied by daughter with a complaint of a left eye irritation that began this morning, 03/07/2017. Denies discharge or active bleeding with pain to the left eye, vision change, cough, and fever. Of note, patient had cataract surgery to the eyes bilaterally in 2007. Past Medical History Reviewed: Historical Data, Nursing Documentation, Vital Signs Vital Signs: Last Vital Signs Temp 98.6 F 03/07/17 10:16 Pulse 78 03/07/17 10:16 Resp 18 03/07/17 10:16 BP 158/95 H 03/07/17 10:16 Pulse Ox 96 03/07/17 10:16 - Medical History PMH: Arthritis, Asthma, Bronchitis, HTN, Hypercholesterolemia, Pneumonia Denies: HIV, Chronic Kidney Disease - Surgical History Surgical History: Appendectomy, Cholecystectomy - Family History Family History: States: Unknown Family Hx - Social History Current smoker - smoking cessation education provided: No Alcohol: None Drugs: Denies - Home Medications Home Medications: Ambulatory Orders Medication Instructions Recorded Aspirin [Ecotrin] 81 mg PO DAILY 10/31/16 Losartan [Cozaar] 50 mg PO DAILY 10/31/16 Phenazopyridine [Pyridium] 200 mg PO TID 10/31/16 Levofloxacin [Levaquin] 500 mg PO DAILY #5 tablet 11/01/16 amLODIPine [Norvasc] 5 mg PO DAILY #30 tab 11/01/16 Nitrofurantoin Macrocrystals 100 mg PO BID #10 cap 11/08/16 [Macrobid] - Allergies Allergies/Adverse Reactions: Allergies Allergy/AdvReac Type Severity Reaction Status Date / Time Penicillins Allergy RASH Verified 10/31/16 17:30 Review of Systems ROS Statement: Except As Marked, All Systems Reviewed And Found Negative (As per HPI, otherwise negative) Constitutional: Negative for: Fever Eyes: Positive for: Other (Left eye irritation). Negative for: Pain, Vision Change Respiratory: Negative for: Cough Physical Exam - Reviewed Nursing Documentation Reviewed: Yes Vital Signs Reviewed: Yes - Physical Exam Appears: Positive for: Non-toxic, No Acute Distress Head Exam: Positive for: ATRAUMATIC, NORMAL INSPECTION, NORMOCEPHALIC Skin: Positive for: Normal Color, Warm, Dry Eye Exam: Positive for: EOMI ENT: Positive for: Other (Subconjunctival hemorrhage noted to the left eye). Negative for: Normal ENT Inspection (No discharge or active bleeding noted) Cardiovascular/Chest: Positive for: Regular Rate, Rhythm. Negative for: Murmur Respiratory: Positive for: Normal Breath Sounds. Negative for: Accessory Muscle Use, Respiratory Distress Lymphatic: Positive for: Normal Exam. Negative for: Adenopathy Neurologic/Psych: Positive for: Alert, Oriented (x3) - ECG O2 Sat by Pulse Oximetry: 96 (RA) Pulse Ox Interpretation: Normal Medical Decision Making Medical Decision Making: Time: 1045 Initial Impression: Subconjunctival hemorrhage Initial Plan: --Vision Acuity will be tested --Will check eye pressure --Reevaluation Time:1130 --eye ocular pressure between 10-20 on 3 measurements. Time: 1132 Patient is medically stable, and requires no treatment in the ED at this time. Patient will be discharged home Counseling was provided and all questions were answered regarding diagnosis and need for follow up with Dr. Linwood Chaves MD. There is agreement to discharge plan. Return if symptoms persist or worsen. Clinical Impression: Subconjunctival Hemorrhage of left eye Scribe~Attestation: Documented by Azalea Jurado, acting as a scribe for Carola Navarrete MD. Provider Scribe~Attestation: All medical record entries made by the Scribe were at my direction and personally dictated by me. I have reviewed the chart and agree that the record accurately reflects my personal performance of the history, physical exam, medical decision making, and the department course for this patient. I have also personally directed, reviewed, and agree with the discharge instructions and disposition. Disposition - Clinical Impression Clinical Impression: Subconjunctival hemorrhage of left eye - Patient ED Disposition Is Patient to be Admitted: No Doctor Will See Patient In The: Office Counseled Patient/Family Regarding: Studies Performed, Diagnosis, Need For Followup - Disposition Referrals: Linwood Chaves MD [Staff Provider] - Disposition: Routine/Home Disposition Time: 11:32 Condition: GOOD Additional Instructions: Follow up with eye doctor in 3 days. Stop aspiring for next 2 days. Instructions: Subconjunctival Hemorrhage (ED) Print Language: WALLISIAN
[2017-03-07 12:08] VITALS: BP 142/90; PULSE 74
== END 2017-03-07 11:40 | disposition home or self-care (01) ==
LOC: H.ER 10:05
DX: H11.32 Conjunctival hemorrhage, left eye (principal); E78.00 Pure hypercholesterolemia, unspecified; I10 Essential (primary) hypertension; J45.909 Unspecified asthma, uncomplicated; Z79.82 Long term (current) use of aspirin; Z88.0 Allergy status to penicillin

== ENCOUNTER 2017-07-18 21:01 | Emergency (ER) | payer MEDICAID, OTHER ==
[2017-07-18 21:01] VITALS: BMI 22.9
[2017-07-18 21:16] VITALS: TEMP 98
[2017-07-18] MEDS ORDERED: Albuterol-Ipratrop 3 mg / 0.5 (3 ml) UD INH STA ×2 (21:38)
--- NOTE | 2017-07-18 21:45 | ED PDOC ---
HPI: SOB/CHF/COPD Time Seen by Provider: 07/18/17 21:10 Chief Complaint (Nursing): Chest Pain Chief Complaint (Provider): Shortness of breath History Per: Patient History/Exam Limitations: no limitations Onset/Duration Of Symptoms: Hrs Current Symptoms Are (Timing): Still Present Additional Complaint(s): 86 year old female with a past medical history of hypertension, asthma, and dyslipidemia who presents to the emergency department with shortness of breath that started around 6 pm today. Reports she developed a dry cough and chest pressure. States she used her inhaler with mild relief of symptoms. Denies nausea, vomiting, or sweating. Past Medical History Reviewed: Historical Data, Nursing Documentation, Vital Signs Vital Signs: Last Vital Signs Temp 98 F 07/18/17 21:13 Pulse 65 07/19/17 01:26 Resp 18 07/19/17 01:26 BP 140/61 07/19/17 01:26 Pulse Ox 98 07/19/17 01:26 - Medical History PMH: Arthritis, Asthma, Bronchitis, HTN, Hypercholesterolemia, Pneumonia Denies: HIV, Chronic Kidney Disease - Surgical History Surgical History: Appendectomy, Cholecystectomy - Family History Family History: States: Unknown Family Hx - Social History Current smoker - smoking cessation education provided: No Alcohol: None Drugs: Denies - Home Medications Home Medications: Ambulatory Orders Medication Instructions Recorded Aspirin [Ecotrin] 81 mg PO DAILY 10/31/16 Losartan [Cozaar] 50 mg PO DAILY 10/31/16 Phenazopyridine [Pyridium] 200 mg PO TID 10/31/16 Levofloxacin [Levaquin] 500 mg PO DAILY #5 tablet 11/01/16 amLODIPine [Norvasc] 5 mg PO DAILY #30 tab 11/01/16 Nitrofurantoin Macrocrystals 100 mg PO BID #10 cap 11/08/16 [Macrobid] - Allergies Allergies/Adverse Reactions: Allergies Allergy/AdvReac Type Severity Reaction Status Date / Time Penicillins Allergy RASH Verified 10/31/16 17:30 Review of Systems ROS Statement: Except As Marked, All Systems Reviewed And Found Negative (As per HPI, otherwise negative) Constitutional: Negative for: Sweats Cardiovascular: Positive for: Other (Chest pressure) Respiratory: Positive for: Cough (dry), Shortness of Breath Gastrointestinal: Negative for: Nausea, Vomiting Physical Exam - Reviewed Nursing Documentation Reviewed: Yes Vital Signs Reviewed: Yes - Physical Exam Appears: Positive for: No Acute Distress Head Exam: Positive for: NORMAL INSPECTION Skin: Positive for: Normal Color, Warm, Dry Cardiovascular/Chest: Positive for: Regular Rate, Rhythm. Negative for: Murmur Respiratory: Positive for: Decreased Breath Sounds (Decreased air entry at the bases bilaterally). Negative for: Accessory Muscle Use, Respiratory Distress Gastrointestinal/Abdominal: Positive for: Normal Exam, Soft. Negative for: Tenderness Extremity: Positive for: Normal ROM. Negative for: Pedal Edema Neurologic/Psych: Positive for: Alert, Oriented (x3) - Laboratory Results Result Diagrams: 07/18/17 22:10 07/18/17 22:10 - ECG O2 Sat by Pulse Oximetry: 97 (RA) Pulse Ox Interpretation: Normal Medical Decision Making Medical Decision Making: Time: 2119 Initial impression: Dyspnea and chest pain Initial plan: EKG BNP CMP Troponin I CBC w. diff PTT & Prothrombin Duoneb 3 ml Duoneb 3 ml Reevaluation 01:15 -Patient reports markedly improvement of symptoms after duonebs. Labs showed no clinical significant abnormalities. Patient is medically stable for discharge and advised to follow up with PMD, diagnosis is asthma. Scribe Attestation: Documented by Azalea Jurado & Lm Laureano, acting as a scribe for Shine Lott MD Provider Scribe Attestation: All medical record entries made by the Scribe were at my direction and personally dictated by me. I have reviewed the chart and agree that the record accurately reflects my personal performance of the history, physical exam, medical decision making, and the department course for this patient. I have also personally directed, reviewed, and agree with the discharge instructions and disposition. Disposition - Clinical Impression Clinical Impression: Asthma, mild - Disposition Disposition: Routine/Home Disposition Time: 01:15 Condition: IMPROVED Instructions: Asthma, Adult (DC) Forms: [facility] ([place]) Print Language: BOL[place]IAN
[2017-07-18] MEDS ORDERED: Albuterol-Ipratrop 3 mg / 0.5 (3 ml) UD ONE (21:54)
[2017-07-18 22:24] LABS: BASO % 0.3 % (0.0-2.0); EOS # 1.7 K/uL (0.0-0.7); EOS % 23.1 % (0.0-4.0); HEMOGLOBIN 11.5 g/dL (12.0-16.0); LYMPH # 2.1 K/uL (1.0-4.3); LYMPH % 28.6 % (20.0-40.0); MEAN CELL VOLUME 89.4 fl (81.0-99.0); MEAN CORPUSCULAR HEMOGLOBIN 29.7 pg (27.0-31.0); MEAN CORPUSCULAR HGB CONC 33.3 g/dL (33.0-37.0); MEAN PLATELET VOLUME 8.1 fl (7.2-11.7); MONO # 0.5 K/uL (0.0-0.8); MONO % 6.6 % (0.0-10.0); NEUT % 41.4 % (50.0-75.0); PLATELET COUNT 242 K/uL (130-400); RBC 3.87 Mil/uL (3.80-5.20); RED CELL DISTRIBUTION WIDTH 14.8 % (11.5-14.5); WHITE BLOOD COUNT 7.3 K/uL (4.8-10.8)
[2017-07-18 22:25] LABS: INR 0.9 (0.9-1.2); PARTIAL THROMBOPLASTIN TIME 22.2 Seconds (25.6-37.1); PROTHROMBIN TIME 9.9 Seconds (9.8-13.1)
[2017-07-18 22:30] LABS: ALB/GLOB RATIO 1.2 (1.0-2.1); ALT/SGPT 29 U/L (9-52); AST/SGOT 21 U/L (14-36); BLOOD UREA NITROGEN 22 mg/dl (7-17); CALCIUM 9.2 mg/dL (8.4-10.2); GFR AFRICAN-AMERICAN > 60; GFR NON-AFRICAN AMERICAN > 60
[2017-07-18 22:42] LABS: B-TYPE NATRIURETIC PEPTIDE 214 pg/ml (0-900)
[2017-07-18 23:11] LABS: EOSINOPHIL 22 % (0-7); LYMPHOCYTE 27 % (20-50); MONOCYTE 11 % (0-10); NEUTROPHIL 40 % (42-75); PLATELET ESTIMATE NORMAL (NORMAL); TOTAL CELLS COUNTED 100
[2017-07-18 23:12] LABS: OVALOCYTES SLIGHT
[2017-07-19 01:27] VITALS: BP 140/61; PULSE 65; RESP 18
[2017-07-19 01:47] VITALS: O2SAT 97
--- NOTE | 2017-07-19 07:48 | RAD ---
HISTORY: chest pain COMPARISON: Chest radiograph 11/08/2016. FINDINGS: LUNGS: No active pulmonary disease. Trace fibrosis is again seen overlying the left hemidiaphragm with left hemidiaphragm somewhat elevated once again. No suspicious interval findings. PLEURA: No significant pleural effusion identified, no pneumothorax apparent. CARDIOVASCULAR: Normal. OSSEOUS STRUCTURES: No significant abnormalities. VISUALIZED UPPER ABDOMEN: Normal. OTHER FINDINGS: None. 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 No interval acute cardiopulmonary disease appreciable however.
--- NOTE | 2017-07-20 10:41 | CARD ---
APPROVED REPORT EKG Measurement Heart [id number] <Conclusion> Normal sinus rhythm Normal ECG
== END 2017-07-19 01:32 | disposition home or self-care (01) ==
LOC: H.ER 21:01
DX: J45.909 Unspecified asthma, uncomplicated (principal); E78.00 Pure hypercholesterolemia, unspecified; I10 Essential (primary) hypertension; J44.9 Chronic obstructive pulmonary disease, unspecified; Z79.82 Long term (current) use of aspirin; Z88.0 Allergy status to penicillin

== ENCOUNTER 2017-08-10 07:54 | Emergency (ER) | payer MEDICAID ==
[2017-08-10 08:05] VITALS: RESP 18; BMI 21.1
--- NOTE | 2017-08-10 08:22 | ED PDOC ---
HPI: Hypertension/Hypotension Time Seen by Provider: 08/10/17 07:59 History Per: Patient Onset/Duration Of Symptoms: Days (2) Associated Symptoms: Headache Severity: Mild Additional Complaint(s): Headache x 2 days. No chest pain or SOB. Recently changed BP meds and checked BP at home and found to be elevated. Past Medical History Vital Signs: Last Vital Signs Temp 98.5 F 08/10/17 08:03 Pulse 71 08/10/17 08:03 Resp 18 08/10/17 08:03 BP 196/76 H 08/10/17 08:03 Pulse Ox 99 08/10/17 08:03 - Medical History PMH: Arthritis, Asthma, Bronchitis, HTN, Hypercholesterolemia, Pneumonia Denies: HIV, Chronic Kidney Disease - Surgical History Surgical History: Appendectomy, Cholecystectomy - Family History Family History: States: Unknown Family Hx - Home Medications Home Medications: Ambulatory Orders Medication Instructions Recorded Aspirin [Ecotrin] 81 mg PO DAILY 10/31/16 Losartan [Cozaar] 50 mg PO DAILY 10/31/16 Phenazopyridine [Pyridium] 200 mg PO TID 10/31/16 Levofloxacin [Levaquin] 500 mg PO DAILY #5 tablet 11/01/16 amLODIPine [Norvasc] 5 mg PO DAILY #30 tab 11/01/16 Nitrofurantoin Macrocrystals 100 mg PO BID #10 cap 11/08/16 [Macrobid] - Allergies Allergies/Adverse Reactions: Allergies Allergy/AdvReac Type Severity Reaction Status Date / Time Penicillins Allergy RASH Verified 10/31/16 17:30 Review of Systems ROS Statement: Except As Marked, All Systems Reviewed And Found Negative Neurological: Positive for: Headache. Negative for: Weakness, Numbness Physical Exam - Reviewed Nursing Documentation Reviewed: Yes Vital Signs Reviewed: Yes - Physical Exam Appears: Positive for: Non-toxic, No Acute Distress Head Exam: Positive for: ATRAUMATIC, NORMAL INSPECTION, NORMOCEPHALIC Skin: Positive for: Normal Color, Warm, DRY Eye Exam: Positive for: EOMI, Normal appearance, PERRL ENT: Positive for: Normal ENT Inspection Neck: Positive for: Normal, Painless ROM Cardiovascular/Chest: Positive for: Regular Rate, Rhythm Respiratory: Positive for: CNT, Normal Breath Sounds Gastrointestinal/Abdominal: Positive for: Normal Exam, Soft Back: Positive for: Normal Inspection Extremity: Positive for: Normal ROM Neurologic/Psych: Positive for: Alert, Oriented. Negative for: Motor/Sensory Deficits - Laboratory Results Result Diagrams: 08/10/17 08:52 08/10/17 08:52 - ECG O2 Sat by Pulse Oximetry: 99 - Progress Re-evaluation Time: 11:16 Condition: Improved (Headache improved, no m/s deficit BP 132/89) Disposition - Clinical Impression Clinical Impression: Hypertension - Patient ED Disposition Is Patient to be Admitted: No Counseled Patient/Family Regarding: Studies Performed, Diagnosis, Need For Followup - Disposition Disposition: Routine/Home Disposition Time: 11:17 Condition: FAIR Instructions: High Blood Pressure in Adults Print Language: ENGLISH
[2017-08-10 09:00] LABS: BASO % 0.6 % (0.0-2.0); EOS # 1.4 K/uL (0.0-0.7); EOS % 25.7 % (0.0-4.0); HEMOGLOBIN 12.2 g/dL (12.0-16.0); LYMPH # 1.6 K/uL (1.0-4.3); MEAN CELL VOLUME 89.4 fl (81.0-99.0); MEAN CORPUSCULAR HGB CONC 33.6 g/dL (33.0-37.0); MEAN PLATELET VOLUME 8.2 fl (7.2-11.7); MONO # 0.4 K/uL (0.0-0.8); MONO % 6.7 % (0.0-10.0); NEUT # 1.9 K/uL (1.8-7.0); NRBC % 0.3 % (0.0-0.0); PLATELET COUNT 222 K/uL (130-400); RBC 4.06 Mil/uL (3.80-5.20); RED CELL DISTRIBUTION WIDTH 14.9 % (11.5-14.5); WHITE BLOOD COUNT 5.3 K/uL (4.8-10.8)
[2017-08-10 10:06] LABS: ALB/GLOB RATIO 1.2 (1.0-2.1); ALBUMIN 3.9 g/dL (3.5-5.0); ALT/SGPT 19 U/L (9-52); AST/SGOT 25 U/L (14-36); BLOOD UREA NITROGEN 13 mg/dl (7-17); CALCIUM 9.4 mg/dL (8.4-10.2); GFR AFRICAN-AMERICAN > 60; GFR NON-AFRICAN AMERICAN > 60
[2017-08-10 11:36] VITALS: BP 139/71; PULSE 59; TEMP 97.8; O2SAT 100
[2017-08-10 12:42] LABS: EOSINOPHIL 28 % (0-7); HYPOCHROMIC SLIGHT; LYMPHOCYTE 34 % (20-50); MONOCYTE 3 % (0-10); NEUTROPHIL 35 % (42-75); PLATELET ESTIMATE NORMAL (NORMAL); TOTAL CELLS COUNTED 100
--- NOTE | 2017-08-10 14:37 | CARD ---
APPROVED REPORT EKG Measurement Heart [id number] <Conclusion> Normal sinus rhythm Minimal voltage criteria for LVH, may be normal variant Borderline ECG
== END 2017-08-10 11:35 | disposition home or self-care (01) ==
LOC: H.ER 07:54
DX: I10 Essential (primary) hypertension (principal); J45.909 Unspecified asthma, uncomplicated; Z79.82 Long term (current) use of aspirin; Z88.0 Allergy status to penicillin; E78.00 Pure hypercholesterolemia, unspecified

== ENCOUNTER 2018-01-09 12:22 | Inpatient (IN) | payer MEDICAID ==
[2018-01-09 12:23] VITALS: BMI 22.3
[2018-01-09 13:35] LABS: BASO % 0.4 % (0.0-2.0); EOS % 17.7 % (0.0-4.0); LYMPH % 34.5 % (20.0-40.0); MEAN CELL VOLUME 92.9 fl (81.0-99.0); MEAN CORPUSCULAR HEMOGLOBIN 30.1 pg (27.0-31.0); MEAN CORPUSCULAR HGB CONC 32.4 g/dL (33.0-37.0); MEAN PLATELET VOLUME 8.2 fl (7.2-11.7); MONO # 0.4 K/uL (0.0-0.8); MONO % 7.3 % (0.0-10.0); NEUT # 2.3 K/uL (1.8-7.0); NEUT % 40.1 % (50.0-75.0); NRBC % 0.2 % (0.0-0.0); RBC 3.99 Mil/uL (3.80-5.20); RED CELL DISTRIBUTION WIDTH 15.4 % (11.5-14.5); WHITE BLOOD COUNT 5.8 K/uL (4.8-10.8)
[2018-01-09 13:51] LABS: ALB/GLOB RATIO 1.2 (1.0-2.1); ALBUMIN 4.4 g/dL (3.5-5.0); ALT/SGPT 16 U/L (9-52); AST/SGOT 26 U/L (14-36); BLOOD UREA NITROGEN 15 mg/dl (7-17); CALCIUM 9.5 mg/dL (8.4-10.2); GFR NON-AFRICAN AMERICAN 59
--- NOTE | 2018-01-09 14:07 | ED PDOC ---
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 Patient states pain is mild and didn't take any medications for it. She denies any fever, chills, cough, vomiting or diaphoresis. NO further medical complaints. PMD: [facility] Past Medical History Reviewed: Historical Data, Nursing Documentation, Vital Signs Vital Signs: Last Vital Signs Temp 98.2 F 01/09/18 12:28 Pulse 63 01/09/18 12:45 Resp 18 01/09/18 12:28 BP 180/72 H 01/09/18 12:48 Pulse Ox 97 01/09/18 12:28 - Medical History PMH: Arthritis, Asthma, Bronchitis, HTN, Hypercholesterolemia, Pneumonia, TIA Denies: HIV, Chronic Kidney Disease - Surgical History Surgical History: Appendectomy, Cholecystectomy Other surgeries: cataracts and hysterectomy - Family History Family History: States: Unknown Family Hx - Social History Current smoker - smoking cessation education provided: No Alcohol: None Drugs: Denies - Home Medications Home Medications: Ambulatory Orders Medication Instructions Recorded Ascorbic Acid [Vitamin C 500 mg 500 mg PO DAILY 01/09/18 Tab] Budesonide [Pulmicort Flexhaler] 1 puff IH Q12 01/09/18 Calcium Carbonate/Vitamin D3 1 tab PO DAILY 01/09/18 [Caltrate 600 Plus D3 Tablet] Cholecalciferol [Vitamin D 1000 IU] 1,000 unit PO DAILY 01/09/18 Famotidine [Pepcid] 20 mg PO BID 01/09/18 Fluticasone Propionate [Flonase] 2 spray MUSTAPHA DAILY PRN 01/09/18 RX: Albuterol HFA [Ventolin HFA 90 2 puff IH Q6 PRN 01/09/18 mcg/actuation (8 g)] RX: Aspirin [Ecotrin] 81 mg PO DAILY 01/09/18 RX: Losartan [Cozaar] 100 mg PO DAILY 01/09/18 RX: amLODIPine [Norvasc] 5 mg PO HS 01/09/18 - Allergies Allergies/Adverse Reactions: Allergies Allergy/AdvReac Type Severity Reaction Status Date / Time Penicillins Allergy RASH Verified 01/09/18 12:28 ZIYAD Risk Score for UA/NSTEMI - ZIYAD Risk Score Age > 64: YES 3 or more CAD Risk Factors: NO Known CAD (Stenosis greater than 50%): NO Aspirin use in past 7 days: YES Severe Angina: NO EKG ST changes greater than 0.5mm: NO Positive Cardiac Marker: NO ZIYAD Score: 2 Risk %: 8% Wells Criteria for PE - Wells Criteria for Pulmonary Embolism Clinical Signs and Symptoms of DVT: No P.E is #1 Diagnosis, or Equally Likely: No Heart Rate >100: No Immobilization at least 3 days;Surgery previous 4 weeks: No Previous, objectively diagnosed PE or DVT: No Hemoptysis: No Malignancy w/treatment within 6 months, or palliative: No Total Score: 0 Review of Systems ROS Statement: Except As Marked, All Systems Reviewed And Found Negative Constitutional: Negative for: Fever, Chills, Sweats Cardiovascular: Positive for: Chest Pain Respiratory: Negative for: Cough Gastrointestinal: Negative for: Vomiting Physical Exam - Reviewed Nursing Documentation Reviewed: Yes Vital Signs Reviewed: Yes - Physical Exam Appears: Positive for: No Acute Distress Head Exam: Positive for: ATRAUMATIC, NORMAL INSPECTION, NORMOCEPHALIC Skin: Positive for: Normal Color, Warm, Dry Eye Exam: Positive for: Normal appearance, EOMI, PERRL ENT: Positive for: Normal ENT Inspection Neck: Positive for: Normal, Painless ROM Cardiovascular/Chest: Positive for: Regular Rate, Rhythm. Negative for: Murmur Respiratory: Positive for: Normal Breath Sounds. Negative for: Respiratory Dis tress Gastrointestinal/Abdominal: Positive for: Normal Exam, Soft. Negative for: Tenderness, Guarding, Rebound Back: Positive for: Normal Inspection. Negative for: L CVA Tenderness, R CVA Tenderness, Vertebral Tenderness Extremity: Positive for: Normal ROM (upper and lower extremities). Negative for: Calf Tenderness, Deformity, Swelling Neurologic/Psych: Positive for: Alert, Oriented. Negative for: Motor/Sensory Deficits, Aphasia, Facial Droop - Laboratory Results Result Diagrams: 01/10/18 04:20 01/10/18 04:20 - ECG O2 Sat by Pulse Oximetry: 97 (RA) Pulse Ox Interpretation: Normal Medical Decision Making Medical Decision Making: Time: 13:13 Initial Impression: Chest pain rule out CAD, rule out pneumonia Initial Plan: --CMP --Troponin I --CBC w/ differential --Chest two views (PA/LAT) [RAD] --Reevaluation EKG: Normal sinus rhythm @ 66bpm. cxr no pneumonia noticed 14:20 -Spoke with Dr. Cisneros who accepted patient. 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 Scribe Attestation: Documented by Lm Laureano, acting as a scribe for Alfonso Parada MD. Provider Scribe Attestation: All medical record entries made by the Scribe were at my direction and personally dictated by me. I have reviewed the chart and agree that the record accurately reflects my personal performance of the history, physical exam, medical decision making, and the department course for this patient. I have also personally directed, reviewed, and agree with the discharge instructions and disposition. Disposition - Clinical Impression Clinical Impression: Acute chest pain - Patient ED Disposition Is Patient to be Admitted: Yes - Disposition Disposition Time: 14:25 Condition: STABLE
--- NOTE | 2018-01-09 15:15 | RAD ---
Date of service: 01/09/2018 HISTORY: chest pain COMPARISON: 07/19/2017 TECHNIQUE: Chest PA and lateral FINDINGS: LUNGS: No active pulmonary disease. PLEURA: No significant pleural effusion identified. No pneumothorax apparent. CARDIOVASCULAR: No aortic atherosclerotic calcification present. Normal cardiac size. No pulmonary vascular congestion. OSSEOUS STRUCTURES: No significant abnormalities. VISUALIZED UPPER ABDOMEN: Normal. OTHER FINDINGS: None. IMPRESSION: No active disease.
[2018-01-10] MEDS: MethylPREDNISolone 40 mg Vial IVP SCH ×4 (03:43→22:14)
[2018-01-10 05:26] LABS: HEMOGLOBIN 10.8 g/dL (12.0-16.0); MEAN CELL VOLUME 88.7 fl (81.0-99.0); MEAN CORPUSCULAR HEMOGLOBIN 29.5 pg (27.0-31.0); MEAN CORPUSCULAR HGB CONC 33.2 g/dL (33.0-37.0); RBC 3.67 Mil/uL (3.80-5.20); RED CELL DISTRIBUTION WIDTH 15.2 % (11.5-14.5); WHITE BLOOD COUNT 5.3 K/uL (4.8-10.8)
[2018-01-10 05:31] LABS: ALB/GLOB RATIO 1.2 (1.0-2.1); ALBUMIN 3.7 g/dL (3.5-5.0); ALT/SGPT 18 U/L (9-52); AST/SGOT 23 U/L (14-36); BLOOD UREA NITROGEN 15 mg/dl (7-17); CALCIUM 9.2 mg/dL (8.4-10.2); GFR NON-AFRICAN AMERICAN 59; HDL CHOLESTEROL 58 MG/DL (30-70)
[2018-01-10 05:41] LABS: LDL CHOLESTEROL 99 mg/dL (0-129)
[2018-01-10 05:47] LABS: T4 9.55 ug/dl (5.5-11.0)
[2018-01-10] MEDS: Albuterol-Ipratrop 3 mg / 0.5 (3 ml) UD INH SCH ×2 (08:06→11:25)
[2018-01-10] MEDS: Budesonide 0.25 mg/2 ml Inhal Susp UD INH SCH ×2 (08:06→19:34)
--- NOTE | 2018-01-10 10:40 | CARD ---
APPROVED REPORT Date of service: 01/10/2018 EKG Measurement Heart [id number] <Conclusion> Sinus bradycardia Nonspecific ST abnormality Abnormal ECG
--- NOTE | 2018-01-10 10:58 | CARD ---
APPROVED REPORT Date of service: 01/10/2018 EXAM: Two-dimensional and M-mode echocardiogram with Doppler and color Doppler. Other Information Quality : AverageRhythm : NSR INDICATION Chest Pain 2D DIMENSIONS IVSd0.96 (0.7-1.1cm)LVDd3.63 (3.9-5.9cm) LVOT Diameter1.99 (1.8-2.4cm)PWd0.95 (0.7-1.1cm) IVSs0.79 (0.8-1.2cm)LA Pmscht40 (18-58mL) LVDs2.36 (2.5-4.0cm)FS (%) 34.9 % PWs1.27 (0.8-1.2cm)SV28.40 ml LVEF (%)65.5 (>50%)CO2.36 L/min M-Mode DIMENSIONS Left Atrium (MM)4.82 (2.5-4.0cm)Aortic Root2.59 (2.2-3.7cm) Aortic Cusp Exc.1.47 (1.5-2.0cm) Aortic Valve AoV Peak Ovemedej436.2cm/sAoV VTI30.8cmAO Peak GR.13mmHg LVOT Peak Xashsdzv816.1cm/sLVOT VTI27.51cmAO Mean GR.6mmHg INGRID (VMAX)1.83sq0ILH (VTI)1.07cc3XS P 1/2 Utvz094pq Mitral Valve MV E Knphfzhj64.1cm/sMV DECEL [id number] A Pacbqltu576.2cm/s MV IOV15slX/A ratio0.7MVA (PHT)2.79cm2 TDI Lateral E' Peak V9.45cm/sMedial E' Peak V6.44cm/sE/Lateral E'7.6 E/Medial E'11.2 Tricuspid Valve TR Peak Tbwowhjp878ck/sRAP WADFDGKG16roDoED Peak Gr.24mmHg [id number] LEFT VENTRICLE The left ventricle is normal size. There is normal left ventricular wall thickness. The left ventricular systolic function is normal. The estimated ejection fraction is 55-60% No regional wall motion abnormalities noted.. Transmitral Doppler flow pattern is Grade I-abnormal relaxation pattern. No left ventricle thrombus noted on this study. There is no ventricular septal defect visualized. There is no left ventricular aneurysm. There is no mass noted in the left ventricle. RIGHT VENTRICLE The right ventricle is normal size. There is normal right ventricular wall thickness. The right ventricular systolic function is normal. ATRIA The left atrium is mildly dilated. The right atrium size is normal. The interatrial septum is intact with no evidence for an atrial septal defect. AORTIC VALVE The aortic valve is normal in structure. Mild aortic regurgitation is present. There is no aortic valvular stenosis. There is no aortic valvular vegetation. MITRAL VALVE The mitral valve is normal in structure. There is no evidence of mitral valve prolapse. There is no mitral valve stenosis. There is mild mitral valve regurgitation noted. TRICUSPID VALVE The tricuspid valve is normal in structure. There is mild tricuspid valve regurgitation noted. RVSP is calculated 32 mm Hg. There is no tricuspid valve prolapse or vegetation. There is no tricuspid valve stenosis. PULMONIC VALVE The pulmonary valve is normal in structure. There is no pulmonic valvular regurgitation. There is no pulmonic valvular stenosis. GREAT VESSELS The aortic root is normal in size. The ascending aorta is normal in size. The pulmonary artery is normal. The IVC is normal in size and collapses >50% with inspiration. PERICARDIAL EFFUSION There is no pericardial effusion. There is no pleural effusion. <Conclusion> The estimated ejection fraction is 55-60% Transmitral Doppler flow pattern is Grade I-abnormal relaxation pattern. The left atrium is mildly dilated. Mild aortic regurgitation is present. There is mild mitral valve regurgitation noted. There is mild tricuspid valve regurgitation noted. RVSP is calculated 32 mm Hg.
[2018-01-10] MEDS: Calcium-Vit D 500 mg-200 Units Tab UD PO SCH (12:09)
[2018-01-10] MEDS: Cholecalciferol 1,000 INTLU TAB PO SCH (12:10)
--- NOTE | 2018-01-10 14:17 | CP.PCM.HP ---
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 Off Note: As per Pt, about 12 yrs ago, she had a fall sustaining Thorax contusion and since this fall, Pt has been experiencing permanent pain/tenderness in her L clavicle /LSB. Worsening symptoms: Sinus tachycardia on EKG , BP 186/80 Aggravated factor: Not in compliance with BP medication. Pt denied: Fever, chills, n/v/d, abdominal pain, urinary symptoms, syncope, dizziness, sick contact. CXR: No active disease. Echo: Systolic function normal, LVEF 55-60% Present on Admission - Present on Admission Any Indicators Present on Admission: No Review of Systems - Constitutional Constitutional: Weakness - EENT Eyes: Other (negative) Ears: Other (negative) Nose/Mouth/Throat: Other (negative) - Cardiovascular Cardiovascular: Chest Pain with Activity (coughing), Rapid Heart Rate - Respiratory Respiratory: Cough, Wheezing, Pain with Coughing - Gastrointestinal Gastrointestinal: Other (NEGATIVE) - Genitourinary Genitourinary: Other (negative) - Musculoskeletal Musculoskeletal: Muscle Weakness, Other (Clavicle L>R, upper externon and LSB pain) - Integumentary Integumentary: Other (negative) - Neurological Neurological: Other (negative) - Psychiatric Psychiatric: Other (negative) - Endocrine Endocrine: Other (negative) - Hematologic/Lymphatic Hematologic: Other (negative) Past Patient History - Infectious Disease Hx of Infectious Diseases: None - Past Medical History & Family History Past Medical History?: Yes Pertinent Family History: Unknown - Past Social History Smoking Status: Never Smoked Alcohol: None Drugs: Denies Home Situation {Lives}: With Family - CARDIAC Hx Cardiac Disorders: Yes Hx Hypercholesterolemia: Yes Hx Hypertension: Yes - PULMONARY Hx Respiratory Disorders: Yes Hx Asthma: Yes Hx Bronchitis: Yes Hx Pneumonia: Yes - NEUROLOGICAL Hx Neurological Disorder: Yes Hx Transient Ischemic Attacks (TIA): Yes - HEENT Hx HEENT Problems: Yes (Rhinits) Hx Cataracts: Yes - RENAL Hx Chronic Kidney Disease: No - ENDOCRINE/METABOLIC Hx Endocrine Disorders: No - HEMATOLOGICAL/ONCOLOGICAL Hx Blood Disorders: No Hx Human Immunodeficiency Virus (HIV): No - INTEGUMENTARY Hx Dermatological Problems: No - MUSCULOSKELETAL/RHEUMATOLOGICAL Hx Musculoskeletal Disorders: Yes Hx Falls: Yes - GASTROINTESTINAL Hx Gastrointestinal Disorders: No - GENITOURINARY/GYNECOLOGICAL Hx Genitourinary Disorders: No - PSYCHIATRIC Hx Psychophysiologic Disorder: No Hx Substance Use: No - SURGICAL HISTORY Hx Surgeries: Yes Hx Appendectomy: Yes Hx Cholecystectomy: Yes Hx Hysterectomy: Yes - ANESTHESIA Hx Anesthesia: Yes Hx Anesthesia Reactions: No Hx Malignant Hyperthermia: No Meds Allergies/Adverse Reactions: Allergies Allergy/AdvReac Type Severity Reaction Status Date / Time Penicillins Allergy RASH Verified 01/09/18 12:28 Physical Exam - Constitutional Appears: No Acute Distress - Head Exam Head Exam: NORMAL INSPECTION - Eye Exam Eye Exam: PERRL - ENT Exam ENT Exam: Normal Exam - Neck Exam Neck exam: Positive for: Normal Inspection - Respiratory Exam Respiratory Exam: Decreased Breath Sounds (at bases), Wheezes (b/l) Additional comments: Tenderness: Clavicle sternal extremity( L>R), sternum manubriun and LSB - Cardiovascular Exam Cardiovascular Exam: REGULAR RHYTHM - GI/Abdominal Exam GI & Abdominal Exam: Normal Bowel Sounds, Soft - Extremities Exam Extremities exam: Positive for: normal inspection - Back Exam Back exam: NORMAL INSPECTION - Neurological Exam Neurological exam: Alert, Oriented x3 Additional comments: No focal motor/sensory deficit. Weakness lower extremities. - Psychiatric Exam Psychiatric exam: Normal Affect, Normal Mood - Skin Skin Exam: Normal Color, Warm Results - Vital Signs Recent Vital Signs: Last Vital Signs Temp 97.9 F 01/10/18 09:00 Pulse 77 01/10/18 12:06 Resp 20 01/10/18 09:00 BP 116/57 L 01/10/18 12:06 Pulse Ox 100 01/10/18 09:00 marianne Ashley - Labs Result Diagrams: 01/10/18 04:20 01/10/18 04:20 Labs: Laboratory Results - last 24 hr 01/10/18 01/10/18 01/10/18 04:20 04:20 06:40 WBC 5.3 RBC 3.67 L Hgb 10.8 L Hct 32.6 L MCV 88.7 D MCH 29.5 MCHC 33.2 RDW 15.2 H Plt Count 282 Sodium 140 Potassium 4.2 Chloride 108 H Carbon Dioxide 25 Anion Gap 11 BUN 15 Creatinine 0.9 Est GFR ( Amer) > 60 Est GFR (Non-Af Amer) 59 Random Glucose 84 Calcium 9.2 Total Bilirubin 0.4 AST 23 ALT 18 Alkaline Phosphatase 85 Troponin I < 0.0120 Total Protein 6.9 Albumin 3.7 Globulin 3.1 Albumin/Globulin Ratio 1.2 Triglycerides 55 D Cholesterol 175 LDL Cholesterol Direct 99 HDL Cholesterol 58 25-OH Vitamin D Total 20.8 L Thyroxine (T4) 9.55 TSH 3rd Generation 2.37 01/10/18 12:06 WBC RBC Hgb Hct MCV MCH MCHC RDW Plt Count Sodium Potassium Chloride Carbon Dioxide Anion Gap BUN Creatinine Est GFR ( Amer) Est GFR (Non-Af Amer) Random Glucose Calcium Total Bilirubin AST ALT Alkaline Phosphatase Troponin I < 0.0120 Total Protein Albumin Globulin Albumin/Globulin Ratio Triglycerides Cholesterol LDL Cholesterol Direct HDL Cholesterol 25-OH Vitamin D Total Thyroxine (T4) TSH 3rd Generation reviewed J.P. - EKG Data EKG comments: reviewed J.P. - Impressions Impression: Echo: Reviewed J.P. - Imaging and Cardiology Chest x-ray Status: Report reviewed by me (Dion) Assessment & Plan (1) Chest pain Status: Acute Priority: High (2) Costochondral pain Status: Chronic Priority: High (3) Asthma exacerbation Status: Acute Priority: High (4) Hypertension Status: Chronic Priority: High (5) Hx-TIA (transient ischemic attack) Status: Chronic Priority: Medium - Assessment and Plan (Free Text) Plan: F/U Clavicle X-Ray, Continue O2 NC, Continue Norvas, Cozaar, ASA, Duoneb, Pulmicort, Solu-Medrol, Phenergan with Co and rest of Tx. PT eval, Cardiology consult. - Date & Time Date: 01/10/18 Time: 11:00
--- NOTE | 2018-01-10 15:52 | RAD ---
Date of service: 01/10/2018 PROCEDURE: Bilateral clavicles HISTORY: pain COMPARISON: Not available TECHNIQUE: Two views each of the right and left clavicle are submitted. FINDINGS: There is no evidence of fracture. No lytic or blastic osseous lesion is identified. The acromioclavicular and sternoclavicular joints are unremarkable in appearance. IMPRESSION: Unremarkable examination
[2018-01-10] MEDS ORDERED: Promethazine/Cod 6.25mg-10mg/5ml Syr UD PO PRN (22:10)
[2018-01-11] MEDS: MethylPREDNISolone 40 mg Vial IVP SCH ×4 (04:30→21:29)
--- NOTE | 2018-01-11 05:20 | CON ---
DATE: 01/10/2018 CARDIOLOGY CONSULTATION REASON FOR CONSULTATION: Sinus bradycardia as well as chest pain. HISTORY OF PRESENT ILLNESS: The patient is an 87-year-old female who has history of hypertension, bronchial asthma on nebulizer at home, was referred from [facility] by EMS because of chest pain for the past 3 days. The patient is unaware of any prior cardiac history, and at time of my elevation, denied any chest pain. The patient thus cannot describe the character of her chest pain. The patient did report nausea, but no vomiting. SOCIAL HISTORY: The patient is nonsmoker, nondrinker. MEDICATIONS: Cozaar 100 mg daily, aspirin 81 mg once a day, Norvasc 5 mg once a day, Solu-Medrol 30 mg intravenously every 6 hours, vitamin C 500 mg daily, and vitamin D 1000 international units p.o. daily. REVIEW OF SYSTEMS: No fever or chills. No dizziness or syncope. No productive cough. PHYSICAL EXAMINATION: GENERAL: The patient is an elderly female who does not appear to be in any distress. VITAL SIGNS: Blood pressure 118/49, heart rate 66, temperature 98, and respirations 18. HEENT: Normocephalic. CHEST: Minimal rhonchi. HEART: S1 and S2 regular. ABDOMEN: Soft. EXTREMITIES: No edema. LABORATORY DATA: Today's hemoglobin and hematocrit 10.8 and 32.6. White count and platelet count are within normal limits. Today's SMA-7 is within normal limit except for chloride of 108. Three sets of troponins are negative. TSH level and T4 level are within normal limit. EKG reveals sinus bradycardia at rate of [address]-segment abnormality. Echocardiographic study revealed normal ejection fraction, mildly dilated left atrium, mild aortic insufficiency, mild mitral insufficiency. ASSESSMENT: 1. Chest pain. Myocardial infraction is ruled out. 2. Mild sinus bradycardia. 3. History of bronchial asthma. 4. Systematic hypertension. RECOMMENDATIONS: Continue current conservative medical approach including aspirin 81 mg once a day, Norvasc 5 mg once a day, Solu-Medrol 30 mg intravenously every 6 hours, Pepcid 20 mg p.o. twice a day, lactulose 20 mg once a day. Invasive cardiac workup will not be justified in this case. Puneet Murphy MD [facility] # [id number]
[2018-01-11] MEDS: Budesonide 0.25 mg/2 ml Inhal Susp UD INH SCH ×2 (07:17→19:13)
[2018-01-11] MEDS: Calcium-Vit D 500 mg-200 Units Tab UD PO SCH (09:03)
[2018-01-11] MEDS: Cholecalciferol 1,000 INTLU TAB PO SCH (09:05)
--- NOTE | 2018-01-11 15:40 | CP.PCM.PN ---
Subjective - Date & Time of Evaluation Date of Evaluation: 01/11/18 Time of Evaluation: 12:00 - Subjective Subjective: F/U Chest pain. Cough improved, no SOB with O2, chest congestion improved, LSB pain improved. Objective - Vital Signs/Intake and Output Vital Signs (last 24 hours): Temp Pulse Resp BP Pulse Ox 98 F 86 18 120/49 L 95 01/11/18 08:13 01/11/18 13:35 01/11/18 08:13 01/11/18 09:04 01/11/18 08:13 - Medications Medications: Current Medications Amlodipine Besylate (Norvasc) 5 mg PO HS [facility] Last Admin: 01/10/18 22:13 Dose: 5 mg Ascorbic Acid (Vitamin C 500 Mg Tab) 500 mg PO DAILY [facility] Last Admin: 01/11/18 09:04 Dose: 500 mg Aspirin (Ecotrin) 81 mg PO DAILY [facility] Last Admin: 01/11/18 09:04 Dose: 81 mg Budesonide (Pulmicort Respules) 0.25 mg INH RBID [facility] Last Admin: 01/11/18 07:17 Dose: 0.25 mg Calcium/Vitamin D (Oyster Shell Calcium/Vitamin D 500 Mg-200 Iu) 1 tab PO DAILY [facility] Last Admin: 01/11/18 09:03 Dose: 1 tab Cholecalciferol (Vitamin D) 1,000 intlu PO DAILY [facility] Last Admin: 01/11/18 09:05 Dose: 1,000 intlu Famotidine (Pepcid) 20 mg PO BID [facility] Last Admin: 01/11/18 09:04 Dose: 20 mg Fluticasone Propionate (Flonase) 2 spr MUSTAPHA DAILY PRN PRN Reason: Nasal congestion Lactulose (Enulose) 20 gm PO DAILY [facility] Last Admin: 01/11/18 09:10 Dose: Not Given Losartan Potassium (Cozaar) 100 mg PO DAILY [facility] Last Admin: 01/11/18 09:04 Dose: Not Given Methylprednisolone (Solu-Medrol) 30 mg IVP Q6 [facility] Last Admin: 01/11/18 09:02 Dose: 30 mg Promethazine HCl/Codeine (Phenergan/Codeine Oral Syrup) 5 ml PO Q4 PRN PRN Reason: Cough - Labs Labs: 01/10/18 04:20 01/10/18 04:20 - Constitutional Appears: No Acute Distress - Head Exam Head Exam: NORMAL INSPECTION - Eye Exam Eye Exam: PERRL - ENT Exam ENT Exam: Normal Exam - Neck Exam Neck Exam: Normal Inspection - Respiratory Exam Respiratory Exam: Decreased Breath Sounds (at bases), Rhonchi (scattered) Additional comments: Tenderness: Clavicle sternal extremity L>R, sternum manubriun and LSB - Cardiovascular Exam Cardiovascular Exam: REGULAR RHYTHM - GI/Abdominal Exam GI & Abdominal Exam: Soft, Normal Bowel Sounds - Extremities Exam Extremities Exam: Normal Inspection - Back Exam Back Exam: NORMAL INSPECTION - Neurological Exam Neurological Exam: Alert, Oriented x3 Additional comments: No focal motor/sensory deficit. Weakness L/E - Psychiatric Exam Psychiatric exam: Normal Affect, Normal Mood - Skin Skin Exam: Normal Color, Warm Assessment and Plan (1) Chest pain Status: Acute (2) Costochondral pain Status: Chronic (3) Asthma exacerbation Status: Acute (4) Hypertension Status: Chronic (5) Hx-TIA (transient ischemic attack) Status: Chronic - Assessment and Plan (Free Text) Plan: Continue ASA 81 mg, Cozaar, Solu-Medrol, Pulmicort, Phenergan with Co and rest of Tx.
--- NOTE | 2018-01-11 22:46 | PN ---
DATE: 01/11/2018 SUBJECTIVE: The patient denies chest pain or shortness of breath. PHYSICAL EXAMINATION: VITAL SIGNS: Blood pressure , heart rate 67, temperature 98.2, respirations 16. HEENT: Pale conjunctiva. CHEST: Minimal rhonchi. HEART: S1 and S2 regular. ABDOMEN: Soft. EXTREMITIES: No edema. LABORATORY DATA: Echocardiographic study revealed normal ejection fraction, grade 1 abnormal relaxation pattern, mild left atrium, and mild aortic insufficiency. ASSESSMENT: 1. Chest pain, myocardial infarction ruled out. 2. History of bronchial asthma. 3. Systemic hypertension. 4. Mild aortic insufficiency. RECOMMENDATIONS: Continue current aspirin 81 mg once a day, Cozaar 100 mg once a day, Norvasc 5 mg once a day, Solu-Medrol 30 mg intravenously every 6 hours. No further cardiac workup is indicated at this time. Puneet Murphy MD
[2018-01-12] MEDS: MethylPREDNISolone 40 mg Vial IVP SCH ×3 (04:30→17:07)
[2018-01-12] MEDS: Budesonide 0.25 mg/2 ml Inhal Susp UD INH SCH ×2 (07:34→19:28)
[2018-01-12] MEDS: Calcium-Vit D 500 mg-200 Units Tab UD PO SCH (09:55)
[2018-01-12] MEDS: Cholecalciferol 1,000 INTLU TAB PO SCH (09:56)
[2018-01-12] MEDS ORDERED: Alum-Mag Hydrox-Simethicone Susp (30 mL) PO PRN (14:14)
--- NOTE | 2018-01-12 14:31 | CP.PCM.PN ---
Subjective - Date & Time of Evaluation Date of Evaluation: 01/12/18 Time of Evaluation: 11:00 - Subjective Subjective: F/U Asthma Exacerbation. Pt breathing better, less chest congestion. Objective - Vital Signs/Intake and Output Vital Signs (last 24 hours): Temp Pulse Resp BP Pulse Ox 98.1 F 68 18 130/58 L 98 01/12/18 13:00 01/12/18 13:00 01/12/18 13:00 01/12/18 13:00 01/12/18 13:00 - Medications Medications: Current Medications Al Hydrox/Mg Hydrox/Simethicone (Maalox Plus 30 Ml) 30 ml PO Q4 PRN PRN Reason: Indigestion / Heartburn Amlodipine Besylate (Norvasc) 5 mg PO HS [facility] Last Admin: 01/11/18 21:30 Dose: 5 mg Ascorbic Acid (Vitamin C 500 Mg Tab) 500 mg PO DAILY [facility] Last Admin: 01/12/18 09:55 Dose: 500 mg Aspirin (Ecotrin) 81 mg PO DAILY [facility] Last Admin: 01/12/18 09:55 Dose: 81 mg Budesonide (Pulmicort Respules) 0.25 mg INH RBID [facility] Last Admin: 01/12/18 07:34 Dose: 0.25 mg Calcium/Vitamin D (Oyster Shell Calcium/Vitamin D 500 Mg-200 Iu) 1 tab PO DAILY [facility] Last Admin: 01/12/18 09:55 Dose: 1 tab Cholecalciferol (Vitamin D) 1,000 intlu PO DAILY [facility] Last Admin: 01/12/18 09:56 Dose: 1,000 intlu Famotidine (Pepcid) 20 mg PO BID [facility] Last Admin: 01/12/18 09:55 Dose: 20 mg Fluticasone Propionate (Flonase) 2 spr MUSTAPHA DAILY PRN PRN Reason: Nasal congestion Lactulose (Enulose) 20 gm PO DAILY [facility] Last Admin: 01/12/18 09:56 Dose: Not Given Losartan Potassium (Cozaar) 100 mg PO DAILY [facility] Last Admin: 01/12/18 09:55 Dose: 100 mg Methylprednisolone (Solu-Medrol) 30 mg IVP Q8 [facility] Promethazine HCl/Codeine (Phenergan/Codeine Oral Syrup) 5 ml PO Q4 PRN PRN Reason: Cough - Labs Labs: 01/10/18 04:20 01/10/18 04:20 - Constitutional Appears: No Acute Distress - Head Exam Head Exam: NORMAL INSPECTION - Eye Exam Eye Exam: PERRL - ENT Exam ENT Exam: Normal Exam - Neck Exam Neck Exam: Normal Inspection - Respiratory Exam Respiratory Exam: Decreased Breath Sounds (at bases), Rhonchi (scattered) Additional comments: Mild Tenderness: Clavicle sternal extremity L>R, sternum manubriun and LSB - Cardiovascular Exam Cardiovascular Exam: REGULAR RHYTHM - GI/Abdominal Exam GI & Abdominal Exam: Soft, Normal Bowel Sounds - Extremities Exam Extremities Exam: Normal Inspection - Back Exam Back Exam: NORMAL INSPECTION - Neurological Exam Neurological Exam: Alert, Oriented x3 Additional comments: No focal motor/sensory deficit. Weakness L/E - Psychiatric Exam Psychiatric exam: Normal Affect, Normal Mood - Skin Skin Exam: Warm Assessment and Plan (1) Chest pain Status: Acute (2) Costochondral pain Status: Chronic (3) Asthma exacerbation Status: Acute (4) Hypertension Status: Chronic (5) Hx-TIA (transient ischemic attack) Status: Chronic - Assessment and Plan (Free Text) Plan: Taper Steroids, continue Cozzar, Norvasc, ASA and rest of tx.
[2018-01-13] MEDS: MethylPREDNISolone 40 mg Vial IVP SCH ×2 (00:46→09:14)
[2018-01-13 00:57] VITALS: O2SAT 96
[2018-01-13] MEDS: Budesonide 0.25 mg/2 ml Inhal Susp UD INH SCH (07:33)
[2018-01-13 08:15] VITALS: BP 137/66; PULSE 60; RESP 20; TEMP 97.6
[2018-01-13] MEDS: Cholecalciferol 1,000 INTLU TAB PO SCH (09:13)
[2018-01-13] MEDS: Calcium-Vit D 500 mg-200 Units Tab UD PO SCH (09:13)
--- NOTE | 2018-01-13 16:11 | CP.PCM.DIS ---
Provider - Provider Date of Admission: 01/10/18 14:10 Attending physician: Lior Cisneros MD Diagnosis - Discharge Diagnosis (1) Chest pain Status: Acute Priority: High Comment: secondary to costochondriitis, mi ruled out (2) Costochondral pain Status: Chronic Priority: High (3) Asthma exacerbation Status: Acute Priority: High Comment: unable to determine the type (4) Hypertension Status: Chronic Priority: High (5) Hx-TIA (transient ischemic attack) Status: Chronic Priority: Medium Hospital Course - Lab Results Lab Results: Most Recent Lab Values WBC 5.3 K/uL (4.8-10.8) 01/10/18 04:20 RBC 3.67 Mil/uL (3.80-5.20) L 01/10/18 04:20 Hgb 10.8 g/dL (12.0-16.0) L 01/10/18 04:20 Hct 32.6 % (34.0-47.0) L 01/10/18 04:20 MCV 88.7 fl (81.0-99.0) D 01/10/18 04:20 MCH 29.5 pg (27.0-31.0) 01/10/18 04:20 MCHC 33.2 g/dL (33.0-37.0) 01/10/18 04:20 RDW 15.2 % (11.5-14.5) H 01/10/18 04:20 Plt Count 282 K/uL (130-400) 01/10/18 04:20 MPV 8.2 fl (7.2-11.7) 01/09/18 13:18 Neut % (Auto) 40.1 % (50.0-75.0) L 01/09/18 13:18 Lymph % (Auto) 34.5 % (20.0-40.0) 01/09/18 13:18 [place] % (Auto) 7.3 % (0.0-10.0) 01/09/18 13:18 Eos % (Auto) 17.7 % (0.0-4.0) H 01/09/18 13:18 Baso % (Auto) 0.4 % (0.0-2.0) 01/09/18 13:18 Neut # (Auto) 2.3 K/uL (1.8-7.0) 01/09/18 13:18 Lymph # (Auto) 2.0 K/uL (1.0-4.3) 01/09/18 13:18 [place] # (Auto) 0.4 K/uL (0.0-0.8) 01/09/18 13:18 Eos # (Auto) 1.0 K/uL (0.0-0.7) H 01/09/18 13:18 Baso # (Auto) 0.0 K/uL (0.0-0.2) 01/09/18 13:18 Sodium 140 mmol/l (132-148) 01/10/18 04:20 Potassium 4.2 MMOL/L (3.6-5.0) 01/10/18 04:20 Chloride 108 mmol/L (98-107) H 01/10/18 04:20 Carbon Dioxide 25 mmol/L (22-30) 01/10/18 04:20 Anion Gap 11 (10-20) 01/10/18 04:20 BUN 15 mg/dl (7-17) 01/10/18 04:20 Creatinine 0.9 mg/dl (0.7-1.2) 01/10/18 04:20 Est GFR ( Amer) > 60 01/10/18 04:20 Est GFR (Non-Af Amer) 59 01/10/18 04:20 Random Glucose 84 mg/dL (65-105) 01/10/18 04:20 Calcium 9.2 mg/dL (8.4-10.2) 01/10/18 04:20 Total Bilirubin 0.4 mg/dl (0.2-1.3) 01/10/18 04:20 AST 23 U/L (14-36) 01/10/18 04:20 ALT 18 U/L (9-52) 01/10/18 04:20 Alkaline Phosphatase 85 U/L (38-126) 01/10/18 04:20 Troponin I < 0.0120 ng/mL (0.00-0.120) 01/10/18 12:06 Total Protein 6.9 G/DL (6.3-8.2) 01/10/18 04:20 Albumin 3.7 g/dL (3.5-5.0) 01/10/18 04:20 Globulin 3.1 gm/dL (2.2-3.9) 01/10/18 04:20 Albumin/Globulin Ratio 1.2 (1.0-2.1) 01/10/18 04:20 Triglycerides 55 mg/DL (0-149) D 01/10/18 04:20 Cholesterol 175 mg/dL (0-199) 01/10/18 04:20 LDL Cholesterol Direct 99 mg/dL (0-129) 01/10/18 04:20 HDL Cholesterol 58 MG/DL (30-70) 01/10/18 04:20 25-OH Vitamin D Total 20.8 NG/ML (30.0-100.0) L 01/10/18 06:40 Thyroxine (T4) 9.55 ug/dl (5.5-11.0) 01/10/18 04:20 TSH 3rd Generation 2.37 mIU/ML (0.46-4.68) 01/10/18 04:20 Discharge Exam - Head Exam Head Exam: ATRAUMATIC, NORMAL INSPECTION, NORMOCEPHALIC Discharge Plan - Discharge Medications Prescriptions: Losartan [Cozaar] 100 mg PO DAILY #30 tab amLODIPine [Norvasc] 5 mg PO HS #30 tab Prednisone 10 mg PO DAILY #30 tab.ds.pk Albuterol HFA [Ventolin HFA 90 mcg/actuation (8 g)] 2 puff IH Q6 PRN #1 inhaler PRN Reason: Shortness Of Breath - Follow Up Plan Condition: STABLE Disposition: HOME/ ROUTINE Instructions: Asthma, Adult (DC), Chest Pain (DC) Additional Instructions: leslie rasheed con el doctor anders entre 1 semana Referrals: Dalila Cifuentes APN [Family Provider] - Lior Cisneros MD [Staff Provider] -
--- NOTE | 2018-01-13 18:16 | PN ---
DATE: 01/13/2018 SUBJECTIVE: The patient denies chest pain or shortness of breath. PHYSICAL EXAMINATION: VITAL SIGNS: Blood pressure 137/66, heart rate 60, temperature 97.6, respiration 20. HEENT: Normocephalic. CHEST: Minimal rhonchi. HEART: S1 and S2, regular. EXTREMITIES: No edema. ASSESSMENT: 1. Chest pain, myocardial infarction ruled out. 2. History of bronchial asthma. 3. Mild aortic insufficiency. 4. Systemic hypertension. RECOMMENDATIONS: Continue Cozaar 100 mg once a day, aspirin 81 mg once a day, Norvasc 5 mg once a day, Solu-Medrol 30 mg intravenously every 8 hours. Puneet Murphy MD
--- NOTE | 2018-01-21 13:46 | PQF ---
PROVIDER RESPONSE TEXT: Provider was unable to determine a response for this query. REVIEWER QUERY TEXT: Asthma Specificity and Type Asthma is documented in the Medical Record. Please specify the type: if known;i.e. Such as: -- Mild intermittent -- Mild persistent -- Moderate persistent -- Severe persistent -- Other, please specify H and P: Respiratory: Cough, Wheezing, Pain with Coughing Assessment includes:(3) Asthma exacerbation Status: Acute Priority: High Plan: Continue O2 NC, Duoneb, Pulmicort, Solu-Medrol, Phenergan with Co and rest of Tx. The patient's Clinical Indicators include: - Query created by: Dalila Adams on 01/13/2018 11:06 AM Electronically signed by: Lior Cisneros MD 01/21/2018 1:43 PM
--- NOTE | 2018-01-21 13:46 | PQF ---
PROVIDER RESPONSE TEXT: Provider was unable to determine a response for this query. REVIEWER QUERY TEXT: Symptom Underlying Cause Please document the underlying diagnosis causing the patient?s Chest Pain: OR: Unable to determine CXR: Impression: No active disease. Clavicle Impression : Unremarkable examination trop x 3 : negative H and P includes: Chest pain Status: Acute Priority: High (2) Costochondral pain Status: Chronic P riority: High Cardiology consult: ASSESSMENT: 1. Chest pain. Myocardial infraction is ruled out. 2. Mild sinus bradycardia. 3. History of bronchial asthma. 4. Systematic hypertension. The patient's Clinical Indicators include: - Query created by: Dalila Adams on 01/13/2018 11:11 AM Electronically signed by: Liro Cisneros MD 01/21/2018 1:43 PM
== END 2018-01-13 14:30 | disposition home or self-care (01) | DRG 96 ==
LOC: H.ER 12:22 → H.ERHOLD 14:18 → H.TEL 22:27 → OBSVTOIN 01-10 14:10
PROVIDERS: ADMIT Internal Medicine Pulmonary Disease; ATTEND Internal Medicine Pulmonary Disease
DX: J45.901 Unspecified asthma with (acute) exacerbation (principal); I35.1 Nonrheumatic aortic (valve) insufficiency; N18.9 Chronic kidney disease, unspecified; R00.1 Bradycardia, unspecified; I12.9 Hypertensive chronic kidney disease with stage 1 through stage 4 chronic kidney disease, or unspecified chronic kidney disease; M19.90 Unspecified osteoarthritis, unspecified site; Z86.73 Personal history of transient ischemic attack (TIA), and cerebral infarction without residual deficits; Z87.01 Personal history of pneumonia (recurrent); Z90.49 Acquired absence of other specified parts of digestive tract; Z90.710 Acquired absence of both cervix and uterus; Z98.49 Cataract extraction status, unspecified eye; R00.0 Tachycardia, unspecified; E78.00 Pure hypercholesterolemia, unspecified

== ENCOUNTER 2018-01-18 08:11 | Emergency (ER) | payer MEDICAID ==
[2018-01-18 08:22] VITALS: TEMP 98.1
[2018-01-18 08:23] VITALS: BMI 23.3
[2018-01-18 09:57] LABS: BASO % 0.3 % (0.0-2.0); EOS # 0.7 K/uL (0.0-0.7); EOS % 13.3 % (0.0-4.0); HEMOGLOBIN 11.4 g/dL (12.0-16.0); LYMPH # 1.4 K/uL (1.0-4.3); LYMPH % 25.5 % (20.0-40.0); MEAN CORPUSCULAR HEMOGLOBIN 29.5 pg (27.0-31.0); MEAN CORPUSCULAR HGB CONC 32.8 g/dL (33.0-37.0); MEAN PLATELET VOLUME 8.1 fl (7.2-11.7); MONO # 0.4 K/uL (0.0-0.8); MONO % 6.6 % (0.0-10.0); NEUT # 2.9 K/uL (1.8-7.0); NEUT % 54.3 % (50.0-75.0); RBC 3.86 Mil/uL (3.80-5.20); RED CELL DISTRIBUTION WIDTH 15.2 % (11.5-14.5); WHITE BLOOD COUNT 5.4 K/uL (4.8-10.8)
[2018-01-18 10:03] LABS: ALB/GLOB RATIO 1.2 (1.0-2.1); ALBUMIN 3.4 g/dL (3.5-5.0); ALT/SGPT 22 U/L (9-52); AST/SGOT 20 U/L (14-36); BLOOD UREA NITROGEN 14 mg/dl (7-17); CALCIUM 8.9 mg/dL (8.4-10.2); GFR NON-AFRICAN AMERICAN > 60
--- NOTE | 2018-01-18 10:41 | ED PDOC ---
HPI: Allergic Reaction Time Seen by Provider: 01/18/18 09:06 Chief Complaint (Nursing): Allergic Reaction Chief Complaint (Provider): Allergic reaction History Per: Patient, Family History/Exam Limitations: no limitations Onset/Duration Of Symptoms: Days (x5) Current Symptoms Are (Timing): Still Present Associated Symptoms: Itching Additional Complaint(s): 87 year old female presents to the ED complaining of itching throughout the body which began on January 14. Patient was admitted for asthma exacerbation this month and was discharged on Prednisone which she took 3 days of and stopped due to symptoms. Denies fever, nausea, vomiting, rash, and medications taken [employer]. PMD: Lior Sanders Past Medical History Reviewed: Historical Data, Nursing Documentation, Vital Signs Vital Signs: Last Vital Signs Temp 98.1 F 01/18/18 08:31 Pulse 72 01/18/18 08:31 Resp 18 01/18/18 08:31 BP 173/67 H 01/18/18 08:31 Pulse Ox 99 01/18/18 08:31 - Medical History PMH: Arthritis, Asthma, Bronchitis, HTN, Hypercholesterolemia, Pneumonia, TIA Denies: HIV, Chronic Kidney Disease - Surgical History Surgical History: Appendectomy, Cholecystectomy - Family History Family History: States: Unknown Family Hx - Home Medications Home Medications: Ambulatory Orders Medication Instructions Recorded Ascorbic Acid [Vitamin C 500 mg 500 mg PO DAILY 01/09/18 Tab] Aspirin [Ecotrin] 81 mg PO DAILY 01/09/18 Budesonide [Pulmicort Flexhaler] 1 puff IH Q12 01/09/18 Calcium Carbonate/Vitamin D3 1 tab PO DAILY 01/09/18 [Caltrate 600 Plus D3 Tablet] Cholecalciferol [Vitamin D 1000 IU] 1,000 unit PO DAILY 01/09/18 Famotidine [Pepcid] 20 mg PO BID 01/09/18 Fluticasone Propionate [Flonase] 2 spray MUSTAPHA DAILY PRN 01/09/18 Albuterol HFA [Ventolin HFA 90 2 puff IH Q6 PRN #1 inhaler 01/13/18 mcg/actuation (8 g)] Losartan [Cozaar] 100 mg PO DAILY #30 tab 01/13/18 Prednisone 10 mg PO DAILY #30 tab.ds.pk 01/13/18 amLODIPine [Norvasc] 5 mg PO HS #30 tab 01/13/18 Hydroxyzine HCl 25 mg PO TID PRN #20 tablet 01/18/18 - Allergies Allergies/Adverse Reactions: Allergies Allergy/AdvReac Type Severity Reaction Status Date / Time Penicillins Allergy RASH Verified 01/09/18 12:28 Review of Systems ROS Statement: Except As Marked, All Systems Reviewed And Found Negative Constitutional: Negative for: Fever Gastrointestinal: Negative for: Nausea, Vomiting Skin: Positive for: Other (Itching throughout the body). Negative for: Rash Physical Exam - Reviewed Nursing Documentation Reviewed: Yes Vital Signs Reviewed: Yes - Physical Exam Appears: Positive for: Non-toxic, No Acute Distress. Negative for: Uncomfortable (comfortable) Head Exam: Positive for: ATRAUMATIC, NORMOCEPHALIC Skin: Positive for: Normal Color (skin clear), Warm, Dry Eye Exam: Positive for: Normal appearance Neck: Positive for: Normal, Painless ROM Cardiovascular/Chest: Positive for: Regular Rate, Rhythm Respiratory: Positive for: Normal Breath Sounds. Negative for: Wheezing, Respiratory Distress Extremity: Positive for: Normal ROM Neurologic/Psych: Positive for: Alert, Oriented. Negative for: Motor/Sensory Deficits - Laboratory Results Result Diagrams: 01/18/18 09:00 01/18/18 09:00 - ECG O2 Sat by Pulse Oximetry: 99 (RA) Pulse Ox Interpretation: Normal - Progress Re-evaluation Time: 11:36 Condition: Re-examined, Improved Disposition - Clinical Impression Clinical Impression: Pruritus - Patient ED Disposition Is Patient to be Admitted: No Doctor Will See Patient In The: Office Counseled Patient/Family Regarding: Studies Performed, Diagnosis, Need For Followup - Disposition Referrals: Lior Cisneros MD [Family Provider] - Disposition: Routine/Home Disposition Time: 11:00 Condition: GOOD Additional Instructions: KALE MELÉNDEZ, thank you for letting us take care of you today. Your provider was Iva Navarrete MD and you were treated for ALLERGIC REACTION. The emergency medical care you received today was directed at your acute symptoms. If you were prescribed any medication, please fill it and take as directed. It may take several days for your symptoms to resolve. Return to the Emergency Department if your symptoms worsen, do not improve, or if you have any other problems. Please contact your doctor or call one of the physicians/clinics you have been referred to that are listed on the Patient Visit Information form that is included in your discharge packet. Bring any paperwork you were given at [facility] with you along with any medications you are taking to your follow up visit. Our treatment cannot replace ongoing medical care by a primary care provider outside of the emergency department. Thank you for allowing the [facility] team to be part of your care today. If you had an X-Ray or CT scan: A Radiologist will review the ED reading if any change in treatment is needed we will contact you. If you had a blood, urine, or wound culture: It will take several days for the results, if any change in treatment is needed we will contact you. If you had an STI test: It will take 48 hours for the results. Please call after 1 week if you have not heard back. Prescriptions: Hydroxyzine HCl 25 mg PO TID PRN #20 tablet PRN Reason: Itching / Pruritus Instructions: Itchy Skin Medical Decision Making Medical Decision Making: Initial Impression: Generalized pruritus Initial Plan: --CMP --CBC --Atarax 50mg PO Scribe Attestation: Documented by Chilango Kwon acting as a scribe for Iva Navarrete MD. Provider Scribe Attestation: All medical record entries made by the Scribe were at my direction and personally dictated by me. I have reviewed the chart and agree that the record accurately reflects my personal performance of the history, physical exam, medical decision making, and the department course for this patient. I have also personally directed, reviewed, and agree with the discharge instructions and disposition.
[2018-01-18 12:06] VITALS: BP 160/82; PULSE 69; RESP 16; O2SAT 98
== END 2018-01-18 12:06 | disposition home or self-care (01) ==
LOC: H.ER 08:11
DX: L29.9 Pruritus, unspecified (principal); I10 Essential (primary) hypertension; J45.909 Unspecified asthma, uncomplicated; T78.40XA Allergy, unspecified, initial encounter; Z79.82 Long term (current) use of aspirin; Z86.73 Personal history of transient ischemic attack (TIA), and cerebral infarction without residual deficits; Z88.0 Allergy status to penicillin